=== PATIENT | male | born 1960 | race African-American/Black ===

== ENCOUNTER 2017-06-20 14:14 | Inpatient (IN) | payer OTHER ==
[2017-06-20 15:12] LABS: #Lymphocytes 0.5 thou/uL (1.20-3.40); #Monocytes 0.8 thou/uL (0.11-0.59); %Basophils 0.2 % (0.0-1.0); %Eosinophils 0.3 % (0.0-10.0); %Lymphocytes 5.6 % (21.0-51.0); %Monocytes 8.2 % (0.0-10.0); Hematocrit 26.8 % (42.0-52.0); Mean Platelet Volume 8.4 fL (7.4-10.4); Red Blood Cell (RBC) Count 2.89 mill/uL (4.70-6.10); White Blood Cell (WBC) Count 9.4 thou/uL (4.8-10.8)
[2017-06-20 15:25] LABS: Lactic Acid - Sepsis 1.7 mmol/L (0.5-2.2)
[2017-06-20 15:32] LABS: ALT (SGPT) 18 U/L (8-55); AST (SGOT) 13 U/L (5-34); Alkaline Phosphatase 62 U/L (40-150); Anion Gap 30 mmol/L (10-20); Bilirubin, Total 0.9 mg/dL (0.2-1.2); Calc. Creatinine Clearance 0 mL/min (70-130); Calcium 9.6 mg/dL (7.8-10.44); Carbon Dioxide 18 mmol/L (22-29); Chloride 102 mmol/L (98-107); Estimated GFR-MDRD 3; Globulin 3.1 g/dL (2.4-3.5); Lipase 30 U/L (8-78); Protein, Total 7.2 g/dL (6.0-8.3)
[2017-06-20 15:43] LABS: BUN (Urea Nitrogen) 115 mg/dL (8.4-25.7)
--- NOTE | 2017-06-20 15:58 | HP ---
PRIMARY CARE PHYSICIAN: Beatriz Nails M.D. REASON FOR ADMISSION: Acute pulmonary edema, hypertensive urgency, hyperkalemia. HISTORY OF PRESENT ILLNESS: A 56-year-old -Filipino male who initially went to [facility] for evaluation of abdominal pain. The patient was having diffuse abdominal pain, constant burning discomfort without any association of nausea or vomiting. He denies any melena or hematochezia. He denies any abdominal distention. He denies any relation of abdominal pain with food. He denies any fever or chills. He denies any constipation or diarrhea. The patient reports that he missed 3 dialysis appointments. Today, he went to [facility] and he had CT of the abdomen and pelvis which showed pulmonary edema without any acute abdominal process. He was having high blood pressure 228/120 and pulse 117 at [facility]. Patient had routine blood test, which showed hyperkalemia. Subsequently, patient was transferred to our emergency room because patient was needing emergent hemodialysis. At [facility], patient is given Kayexalate and Zofran. After arrival to our emergency room, Dr. Freeman was notified who is going to do emergent dialysis for this particular patient. Patient denies any chest pain, palpitations, shortness of breath. He denies any nausea, vomiting, diarrhea. He denies any fever or chills. ALLERGIES: No known drug allergies. CURRENT HOME MEDICATIONS: PhosLo 667 mg 3 times daily, Coreg 25 mg twice daily , Lipitor 40 mg p.o. at bedtime, Lasix 40 mg p.o. daily, Atarax 25 mg q.8 hourly p.r.n., hydralazine 50 mg 3 times daily. REVIEW OF SYSTEMS: The following complete review of systems was negative, unless otherwise mentioned in the HPI or below: Constitutional: Weight loss or gain, ability to conduct usual activities. Skin: Rash, itching. Eyes: Double vision, pain. ENT/Mouth: Nose bleeding, neck stiffness, pain, tenderness. Cardiovascular: Palpitations, dyspnea on exertion, orthopnea. Respiratory: Shortness of breath, wheezing, cough, hemoptysis, fever or night sweats. Gastrointestinal: Poor appetite, abdominal pain, heartburn, nausea, vomiting, constipation, or diarrhea. Genitourinary: Urgency, frequency, dysuria, nocturia. Musculoskeletal: Pain, swelling. Neurologic/Psychiatric: Anxiety, depression. Allergy/Immunologic: Skin rash, bleeding tendency Please see my HPI for pertinent positives and negatives. All other review of systems reviewed and negative except as mentioned in the HPI. PAST MEDICAL HISTORY: End-stage renal disease on hemodialysis, chronic diastolic heart failure, hypertension, dyslipidemia, anemia of renal disease, secondary hyperparathyroidism of renal origin. PAST SURGICAL HISTORY: Right forearm AV dialysis shunt. PAST PSYCHIATRIC HISTORY: Reviewed and negative. SOCIAL HISTORY: The patient lives at home with family. No history of tobacco, alcohol or illicit drug abuse. FAMILY HISTORY: No strong family history of premature coronary artery disease, stroke or cancer. PHYSICAL EXAMINATION: VITAL SIGNS: On arrival to our emergency room, blood pressure 199/115, pulse 103, respiratory rate 33, temperature 98.4, saturation 98% on room air. Initially, blood pressure at [facility] was 228/120. GENERAL: Patient is currently alert, awake, chronically ill appearing, no obvious acute distress. HEAD: Normocephalic, atraumatic. EYES: Pupils round and reactive to light. Extraocular muscles intact. ENT: Oropharynx within normal limits. Moist mucous membranes. No oral lesions. No pharyngeal erythema, no exudate. NECK: Supple. Range of motion is normal. No meningeal signs of irritation. LUNGS: Clear to auscultation without any obvious rhonchi or rales noted. CARDIAC: S1 and S2 regular, tachycardia, no murmur, no gallop, no rub. ABDOMEN: Soft, bowel sounds present, nontender, nondistended. No organomegaly , no mass, no suprapubic tenderness. EXTREMITIES: Upper extremity AV fistula in right forearm, good thrill. Lower extremity, bilateral pitting edema noted. Good distal pulsation. SKIN: No skin rash. HEMATOLOGICAL SYSTEM: No lymphadenopathy. PSYCHIATRIC: Normal affect. IMAGING AND SIGNIFICANT LABORATORY DATA: 1. EKG based on my review, sinus tachycardia, nonspecific ST-T changes, LVH, left atrial enlargement. 2. Chest x-ray based on my review, cardiomegaly and pulmonary edema. 3. CT of the abdomen and pelvis, no acute abdominal process, pulmonary edema noted. 4. CBC: WBC 7.9, hemoglobin 7.9, MCV 94, platelet 188. 5. BMP: Sodium 145, potassium 7.3, chloride 102, carbon dioxide 17, anion gap 33, BUN 119, creatinine 23.69, glucose 109, calcium 9.3. Lactic acid 1.6. 6. LFT: AST 16, ALT 22, alkaline phosphatase 61, albumin 4.2, lipase 37, BNP 3661.4. ASSESSMENT AND PLAN/IMPRESSION: 1. Acute pulmonary edema, likely due to end-stage renal disease and noncompliance with dialysis regimen precipitated by hypertensive urgency. The patient will require admission to [facility]. Dr. Freeman is already consulted as patient will need emergent dialysis. We will control blood pressure with nitro patch q.8 hourly and will use hydralazine, labetalol, and clonidine on a p.r.n. basis. If blood pressure does not remain under control, then we will consider adding parenteral medications. 2. Acute hyperkalemia due to decreased renal excretion and missed dialysis. Patient will need emergent dialysis. Patient is already given Kayexalate in another emergency room. We will repeat BMP. 3. End-stage renal disease, on hemodialysis, missed 3 dialysis and patient has pulmonary edema. The patient will require dialysis. While in hospital, Dr. Freeman will be consulted. 4. Anion gap metabolic acidosis due to renal failure. 5. Acute on chronic diastolic heart failure. Patient has elevated BNP and currently patient has pulmonary edema. We will obtain echocardiography during this admission. 6. Anemia of renal disease. We will continue Nephro-Rosa one tablet p.o. daily , ferrous sulfate 325 mg p.o. daily and Procrit with dialysis. 7. Deep venous thrombosis prophylaxis, heparin 5000 units subcu twice daily. 8. Gastrointestinal prophylaxis, Pepcid 20 mg p.o. daily. 9. Secondary hyperparathyroidism of renal origin. continue Phoslo as per home dose 10. Hypertensive Urgency: add nitro patch along with home medication and PRN meds 11.Abdominal pain: add Morphin for pain, does not have any acute process on CT and on exam. CODE STATUS: The patient is FULL CODE. Patient does not have any surrogate decision maker. Disposition plan based on clinical course. We are expecting patient's stay in the hospital more than 2 midnights. Plan of care discussed with the patient in detail. MTDD
[2017-06-20] MEDS ORDERED: Eucerin (Mineral Oil/Petrolatum,White) 30 gm Jar TOP PRN (17:07)
[2017-06-20] MEDS ORDERED: Milk Of Magnesia 30 ML UDCUP PO PRN (17:07)
[2017-06-20] MEDS ORDERED: Ondansetron HCl/PF 4 MG/2 ML Vial IVP PRN (17:07)
[2017-06-20] MEDS ORDERED: Diabetic Tussin 200 MG/10 ML UDCUP PO PRN (17:07)
[2017-06-20] MEDS ORDERED: Chloraseptic Spray 180 ml Bottle PO PRN (17:07)
[2017-06-20] MEDS ORDERED: Acetaminophen 325 MG TAB PO PRN (17:07)
[2017-06-20] MEDS ORDERED: Loperamide HCl 2 MG CAP PO PRN (17:07)
[2017-06-20] MEDS ORDERED: Senokot 8.6 MG TAB PO PRN (17:07)
[2017-06-20] MEDS ORDERED: hydrALAZINE 20 MG/ML VIAL SLOW IVP PRN (17:07)
[2017-06-20] MEDS ORDERED: Sodium Chloride 0.65% Nasal 44 ML BOT EA NARE PRN (17:07)
[2017-06-20] MEDS ORDERED: Loratadine 10 MG TAB PO PRN (17:07)
[2017-06-20] MEDS ORDERED: Labetalol HCl 100 MG/20 ML VIAL SLOW IVP PRN (17:07)
[2017-06-20] MEDS ORDERED: Mag-Al 1200 mg/1200 mg/30 ML UDCUP PO PRN (17:07)
[2017-06-20] MEDS ORDERED: Ondansetron ODT 4 MG TAB PO PRN (17:07)
[2017-06-20] MEDS ORDERED: Zolpidem Tartrate 5 MG TAB PO PRN (17:07)
[2017-06-20] MEDS ORDERED: Nitroglycerin 0.4 MG TAB (25 Tab Bottle) SL PRN (17:07)
[2017-06-20] MEDS ORDERED: Morphine 10 MG/ML CARPUJECT SLOW IVP PRN (17:30)
[2017-06-20] MEDS: Calcium Acetate 667 MG CAP PO SCH (17:50)
[2017-06-20] MEDS: Carvedilol 25 MG TAB PO SCH (18:16)
[2017-06-20] MEDS: cloNIDine 0.1 MG TAB PO PRN (19:08)
[2017-06-20] MEDS: Heparin 5,000 UNITS/ML VIAL SC SCH (22:27)
[2017-06-20] MEDS: Atorvastatin Calcium 40 MG TAB PO SCH (22:28)
[2017-06-20] MEDS: Nitroglycerin 2% Ointment 1 INCH/1 GM Packet TOP SCH (22:28)
[2017-06-20 22:52] VITALS: BMI 23.0
--- NOTE | 2017-06-21 00:21 | CON ---
DATE OF CONSULTATION: 06/20/2017 REASON FOR CONSULTATION: Hyperkalemia. HISTORY OF PRESENT ILLNESS: This is a very pleasant 56-year-old gentleman, who presented to the hosp [facility] with acute pulmonary edema, hypertension, urgency and hyperkalemia. The patient has a history o f noncompliance, missing dialysis. He says he does not feel like going. The patient can give no fur ther history. PAST MEDICAL HISTORY: Significant for end-stage renal disease, chronic diastolic heart failure, hype rtension, hyperlipidemia, anemia of chronic disease, history of AV fistula, history of tunneled dialy sis catheter. SOCIAL HISTORY: No alcohol or drug use. FAMILY HISTORY: Negative for ESRD. REVIEW OF SYSTEMS: Patient declined to answer. PHYSICAL EXAMINATION: GENERAL: Patient is awake, alert. VITAL SIGNS: Afebrile, pulse 100, breathing 16, blood pressure 119/150. GENERAL APPEARANCE AND MENTAL STATUS: Fair. HEAD/NECK: Normocephalic. Atraumatic. EYES: EOMI. No deformity. EARS: Clear. No ulcers. NOSE: Intact. No lesions. MOUTH: Clear. No discharge. THROAT: Clear. No exudate. LUNGS: Clear. Crackles. CARDIAC: S1, S2. No rub. ABDOMEN: Benign. BS+. GENITALIA/RECTUM: Hunt absent. BACK/EXTREMITIES: Lower extremities has edema. NEUROLOGICAL: Alert and motor intact. SKIN: Rash- Bruise- LYMPHATICS: Edema- Ulcer LABORATORY: Potassium 7.3. ASSESSMENT AND RECOMMENDATIONS: 1. Stage 3 chronic kidney disease. Plan urgent hemodialysis. The nurse will call. 2. Hyperkalemia, plan dialysis acidosis. Plan dialysis. 3. Anemia, stable. 4. Medications based on GFR appropriate. Overall, prognosis is extremely poor.
[2017-06-21] MEDS: hydrOXYzine 10 MG TAB PO PRN (00:24)
[2017-06-21 04:49] LABS: #Eosinphils 0.2 thou/uL (0.0-0.7); #Lymphocytes 0.8 thou/uL (1.20-3.40); #Monocytes 0.5 thou/uL (0.11-0.59); %Basophils 0.5 % (0.0-1.0); %Eosinophils 5.2 % (0.0-10.0); %Lymphocytes 17.3 % (21.0-51.0); %Monocytes 10.1 % (0.0-10.0); Hematocrit 22.7 % (42.0-52.0); Mean Platelet Volume 7.4 fL (7.4-10.4); Red Blood Cell (RBC) Count 2.43 mill/uL (4.70-6.10); White Blood Cell (WBC) Count 4.6 thou/uL (4.8-10.8)
[2017-06-21 05:18] LABS: ALT (SGPT) 14 U/L (8-55); AST (SGOT) 8 U/L (5-34); Alkaline Phosphatase 53 U/L (40-150); Anion Gap 16 mmol/L (10-20); BUN (Urea Nitrogen) 47 mg/dL (8.4-25.7); Calc. Creatinine Clearance 6 mL/min (70-130); Calcium 9.1 mg/dL (7.8-10.44); Carbon Dioxide 33 mmol/L (22-29); Chloride 99 mmol/L (98-107); Estimated GFR-MDRD 5; Globulin 2.8 g/dL (2.4-3.5); Phosphorus 8.1 mg/dL (2.3-4.7); Protein, Total 6.3 g/dL (6.0-8.3)
[2017-06-21] MEDS: Nitroglycerin 2% Ointment 1 INCH/1 GM Packet TOP SCH ×3 (06:15→20:47)
[2017-06-21] MEDS: Aspirin 325 MG TAB PO SCH (07:54)
[2017-06-21] MEDS: Folic Acid/Vit B Comp W-C PO SCH (07:54)
[2017-06-21] MEDS: Carvedilol 25 MG TAB PO SCH ×2 (07:54→17:28)
[2017-06-21] MEDS: Calcium Acetate 667 MG CAP PO SCH ×3 (07:54→17:28)
[2017-06-21] MEDS: Famotidine 20 MG TAB PO SCH (07:55)
[2017-06-21] MEDS: Heparin 5,000 UNITS/ML VIAL SC SCH ×2 (07:55→20:46)
[2017-06-21] MEDS ORDERED: FLU VACC QS2017-18 36 mo. & older 0.5 ML SYRINGE IM ONE (09:00)
--- NOTE | 2017-06-21 12:12 | PDOC.PN ---
- Subjective Encounter Start Date: 06/21/17 Encounter Start Time: 07:50 -: old records requested/rev Patient seen and examined. No new complaints. No overnight events, denies abdominal pain - Objective Resuscitation Status: Resuscitation Status FULL:Full Resuscitation MAR Reviewed: Yes Vital Signs & Weight: Vital Signs (12 hours) Temp Pulse Resp BP Pulse Ox 06/21/17 11:29 98.1 F 75 20 145/86 H 100 06/21/17 08:31 100 06/21/17 08:00 99.0 F 83 20 100 06/21/17 07:26 99.0 F 83 20 129/78 100 06/21/17 04:00 98.4 F 84 20 136/90 100 Weight Weight 129 lb 14.4 oz I&O: 06/20/17 06/21/17 06/22/17 06:59 06:59 06:59 Intake Total 100 Output Total 3200 Balance -3100 Result Diagrams: 06/21/17 04:31 06/21/17 04:31 EKG Reviewed by me: Yes (NSR) Phys Exam - Physical Examination Constitutional: NAD HEENT: PERRLA, moist MMs, sclera anicteric Neck: no JVD, supple Respiratory: no wheezing, no rales, no rhonchi Cardiovascular: RRR, no significant murmur, no rub Gastrointestinal: soft, non-tender, no distention, positive bowel sounds Musculoskeletal: no edema, pulses present Neurological: non-focal, normal sensation, moves all 4 limbs Psychiatric: normal affect, A&O x 3 Skin: no rash, normal turgor Dx/Plan (1) Abdominal pain Code(s): R10.9 - UNSPECIFIED ABDOMINAL PAIN Status: Resolved (2) Acute on chronic diastolic (congestive) heart failure Code(s): I50.33 - ACUTE ON CHRONIC DIASTOLIC (CONGESTIVE) HEART FAILURE Status : Acute (3) Hypertensive urgency Code(s): I16.0 - HYPERTENSIVE URGENCY Status: Acute (4) Metabolic acidosis Code(s): E87.2 - ACIDOSIS Status: Acute (5) Pulmonary edema Code(s): J81.1 - CHRONIC PULMONARY EDEMA Status: Resolved (6) Anemia of renal disease Code(s): D63.1 - ANEMIA IN CHRONIC KIDNEY DISEASE Status: Chronic (7) Dyslipidemia Code(s): E78.5 - HYPERLIPIDEMIA, UNSPECIFIED Status: Chronic (8) ESRD (end stage renal disease) on dialysis Code(s): N18.6 - END STAGE RENAL DISEASE; Z99.2 - DEPENDENCE ON RENAL DIALYSIS Status: Chronic (9) Hypertension Code(s): I10 - ESSENTIAL (PRIMARY) HYPERTENSION Status: Chronic (10) Noncompliance of patient with renal dialysis Code(s): Z91.15 - PATIENT'S NONCOMPLIANCE WITH RENAL DIALYSIS Status: Chronic (11) Secondary hyperparathyroidism of renal origin Code(s): N25.81 - SECONDARY HYPERPARATHYROIDISM OF RENAL ORIGIN Status: Chronic (12) Hyperkalemia Code(s): E87.5 - HYPERKALEMIA Status: Resolved - Plan cont current plan of care * after dialysis, BP controlled, pulmonary edema resolved and potassium improved * today will transfer to medical * echo today * will adjust BP medication * medication reviewed as below * symptomatic treatment. Review of Systems - Review of Systems Constitutional: negative: Fever, Chills, Sweats, Weakness, Malaise, Other Eyes: negative: Pain, Vision Change, Conjunctivae Inflammation, Eyelid Inflammation, Redness, Other ENT: negative: Ear Pain, Ear Discharge, Nose Pain, Nose Discharge, Nose Congestion, Mouth Pain, Mouth Swelling, Throat Pain, Throat Swelling, Other Respiratory: negative: Cough, Dry, Shortness of Breath, Hemoptysis, SOB with Excertion, Pleuritic Pain, Sputum, Wheezing Cardiovascular: negative: Chest Pain, Palpitations, Orthopnea, Paroxysmal Noc. Dyspnea, Edema, Light Headedness, Other Gastrointestinal: negative: Nausea, Vomiting, Abdominal Pain, Diarrhea, Constipation, Melena, Hematochezia, Other Genitourinary: negative: Dysuria, Frequency, Incontinence, Hematuria, Retention , Other Musculoskeletal: negative: Neck Pain, Shoulder Pain, Arm Pain, Back Pain, Hand Pain, Leg Pain, Foot Pain, Other Skin: negative: Rash, Lesions, Morales, Bruising, Other - Medications/Allergies Allergies/Adverse Reactions: Allergies Allergy/AdvReac Type Severity Reaction Status Date / Time No Known Allergies Allergy Verified 06/20/17 17:09 Medications: Current Medications Acetaminophen (Tylenol) 650 mg PO Q4H PRN PRN Reason: Headache/Fever or Pain Hydrocodone Bitart/Acetaminophen ([place] 5/325) 1 tab PO Q4H PRN PRN Reason: Moderate Pain (4-6) Al Hydroxide/Mg Hydroxide (Maalox) 30 ml PO Q6H PRN PRN Reason: Heartburn or Indigestion Aspirin (Aspirin) 325 mg PO DAILY [facility] Last Admin: 06/21/17 07:54 Dose: 325 mg Atorvastatin Calcium (Lipitor) 40 mg PO [facility] Last Admin: 06/20/17 22:28 Dose: 40 mg Calcium Acetate (Phoslo) 667 mg PO TID-[facility] Last Admin: 06/21/17 11:28 Dose: 667 mg Carvedilol (Coreg) 25 mg PO BID-[facility] Last Admin: 06/21/17 07:54 Dose: 25 mg Clonidine (Catapres) 0.1 mg PO Q4H PRN PRN Reason: SBP Greater Than 170 Last Admin: 06/20/17 19:08 Dose: 0.1 mg Famotidine (Pepcid) 20 mg PO DAILY [facility] Last Admin: 06/21/17 07:55 Dose: 20 mg Guaifenesin (Robitussin Sf) 200 mg PO Q4H PRN PRN Reason: Cough Heparin Sodium (Porcine) (Heparin) 5,000 units SC BID [facility] Last Admin: 06/21/17 07:55 Dose: 5,000 units Hydralazine HCl (Apresoline) 10 mg SLOW IVP Q4H PRN PRN Reason: SBP Greater Than 170 Hydroxyzine HCl (Atarax) 10 mg PO Q6H PRN PRN Reason: Itching Last Admin: 06/21/17 00:24 Dose: 10 mg Labetalol HCl (Normodyne) 20 mg SLOW IVP Q4H PRN PRN Reason: SBP Greater Than 170 Loperamide HCl (Imodium) 2 mg PO PRN PRN PRN Reason: Diarrhea/Loose Stools Loratadine (Claritin) 10 mg PO DAILYPRN PRN PRN Reason: Sinus Symptoms Magnesium Hydroxide (Milk Of Magnesium) 30 ml PO DAILYPRN PRN PRN Reason: Constipation Mineral Oil/White Petrolatum (Eucerin Cream) 0 gm TOP BIDPRN PRN PRN Reason: Dry Skin Morphine Sulfate (Morphine) 2 mg SLOW IVP Q4H PRN PRN Reason: Severe Pain (7-10) Nitroglycerin (Nitrostat) 0.4 mg SL Q5MIN PRN PRN Reason: Chest Pain Nitroglycerin (Nitro-Bid 2% Ointment) 0.5 inch TOP Q8HR [facility] Last Admin: 06/21/17 06:15 Dose: 0.5 inch Ondansetron HCl (Zofran Odt) 4 mg PO Q6H PRN PRN Reason: Nausea/Vomiting Ondansetron HCl (Zofran) 4 mg IVP Q6H PRN PRN Reason: Nausea/Vomiting Phenol (Chloraseptic [place] 180 Ml Bot) 0 ml PO PRN PRN PRN Reason: Sore Throat Senna (Senokot) 2 tab PO HSPRN PRN PRN Reason: Constipation Sodium Chloride ([place] Nasal [place] 0.65%) 0 ml EA NARE QIDPRN PRN PRN Reason: Nasal Congestion Vitamin B Complex/Vit C/Folic Acid (Nephro-Rosa Tablet) 1 tab PO DAILY [facility] Last Admin: 06/21/17 07:54 Dose: 1 tab Zolpidem Tartrate (Ambien) 5 mg PO HSPRN PRN PRN Reason: Insomnia
--- NOTE | 2017-06-21 13:17 | PRG ---
DATE OF SERVICE: 06/21/2017 SUBJECTIVE: This is a 56-year-old gentleman being seen for end-stage renal disease. The patient den ies any nausea, vomiting or chest pain. PHYSICAL EXAMINATION: GENERAL: Patient is awake, alert. VITAL SIGNS: Afebrile, pulse 75, breathing at 16, blood pressure 129/78. GENERAL APPEARANCE AND MENTAL STATUS: Fair. HEAD/NECK: Normocephalic. Atraumatic. EYES: EOMI. No deformity. EARS: Clear. No ulcers. NOSE: Intact. No lesions. MOUTH: Clear. No discharge. THROAT: Clear. No exudate. LUNGS: Clear. No crackles. CARDIAC: S1, S2. No rub. ABDOMEN: Benign. BS+ GENITALIA/RECTUM: Hunt absent. BACK/EXTREMITIES: Edema 0+ Ulcer- NEUROLOGICAL: Alert and motor intact. SKIN: Rash- Bruise- LYMPHATICS: Edema- Ulcer- LABORATORY DATA: Hemoglobin 7.2. ASSESSMENT AND RECOMMENDATIONS: 1. Stage 6 chronic kidney disease, plan dialysis. 2. Anemia. We will check hemoglobin again tomorrow and consider transfusion. 3. Medication based on glomerular filtration rate are appropriate. Noncompliance is a major issue.
[2017-06-21] MEDS: Atorvastatin Calcium 40 MG TAB PO SCH (20:44)
[2017-06-21] MEDS: cloNIDine 0.1 MG TAB PO PRN (20:46)
[2017-06-22 05:26] LABS: #Basophils 0.1 thou/uL (0.0-0.2); #Eosinphils 0.4 thou/uL (0.0-0.7); #Lymphocytes 0.7 thou/uL (1.20-3.40); #Monocytes 0.5 thou/uL (0.11-0.59); #Neutrophils 2.6 thou/uL (1.40-6.50); %Basophils 1.5 % (0.0-1.0); %Eosinophils 8.6 % (0.0-10.0); %Monocytes 12.6 % (0.0-10.0); Mean Platelet Volume 8.1 fL (7.4-10.4); Red Blood Cell (RBC) Count 2.34 mill/uL (4.70-6.10); White Blood Cell (WBC) Count 4.3 thou/uL (4.8-10.8)
[2017-06-22] MEDS: Nitroglycerin 2% Ointment 1 INCH/1 GM Packet TOP SCH (05:38)
[2017-06-22] MEDS: Famotidine 20 MG TAB PO SCH (08:06)
[2017-06-22] MEDS: hydrALAZINE 25 MG TAB PO SCH ×2 (08:06→19:55)
[2017-06-22] MEDS: Carvedilol 25 MG TAB PO SCH ×2 (08:06→18:46)
[2017-06-22] MEDS: Aspirin 325 MG TAB PO SCH (08:06)
[2017-06-22] MEDS: Folic Acid/Vit B Comp W-C PO SCH (08:06)
[2017-06-22] MEDS: Calcium Acetate 667 MG CAP PO SCH ×3 (08:06→18:46)
[2017-06-22] MEDS: Heparin 5,000 UNITS/ML VIAL SC SCH ×2 (08:07→19:55)
[2017-06-22] MEDS: Ferrous Sulfate 325 MG TAB PO SCH (08:07)
[2017-06-22] MEDS ORDERED: Epoetin (ESRD) 20,000 UNITS/ML SC SCH (09:00)
--- NOTE | 2017-06-22 12:04 | PDOC.PN ---
- Subjective Encounter Start Date: 06/22/17 Encounter Start Time: 09:30 Patient seen and examined. No new complaints. No overnight events - Objective Resuscitation Status: Resuscitation Status FULL:Full Resuscitation MAR Reviewed: Yes Vital Signs & Weight: Vital Signs (12 hours) Temp Pulse Resp BP BP Pulse Ox 06/22/17 10:55 98.1 F 69 20 158/85 H 97 06/22/17 10:04 167/88 H 06/22/17 08:06 72 178/108 H 06/22/17 08:00 97.2 F L 72 22 H 181/100 H 96 06/22/17 05:00 97.9 F 72 18 163/94 H 99 06/22/17 01:00 98.2 F 79 20 158/88 H 93 L Weight Weight 129 lb 14.4 oz I&O: 06/21/17 06/22/17 06/23/17 06:59 06:59 06:59 Intake Total 100 730 Output Total 3200 Balance -3100 730 Result Diagrams: 06/22/17 04:44 06/21/17 04:31 Additional Labs: Accuchecks 06/20/17 21:08 POC Glucose 131 H Phys Exam - Physical Examination Constitutional: NAD HEENT: PERRLA, moist MMs, sclera anicteric Neck: no JVD, supple Respiratory: no wheezing, no rales, no rhonchi Cardiovascular: RRR, no significant murmur, no rub Gastrointestinal: soft, non-tender, no distention, positive bowel sounds Musculoskeletal: no edema, pulses present Neurological: non-focal, normal sensation Psychiatric: normal affect, A&O x 3 Skin: no rash, normal turgor Dx/Plan (1) Abdominal pain Code(s): R10.9 - UNSPECIFIED ABDOMINAL PAIN Status: Resolved (2) Acute on chronic diastolic (congestive) heart failure Code(s): I50.33 - ACUTE ON CHRONIC DIASTOLIC (CONGESTIVE) HEART FAILURE Status : Acute (3) Hypertensive urgency Code(s): I16.0 - HYPERTENSIVE URGENCY Status: Acute (4) Metabolic acidosis Code(s): E87.2 - ACIDOSIS Status: Acute (5) Pulmonary edema Code(s): J81.1 - CHRONIC PULMONARY EDEMA Status: Resolved (6) Anemia of renal disease Code(s): D63.1 - ANEMIA IN CHRONIC KIDNEY DISEASE Status: Chronic (7) Dyslipidemia Code(s): E78.5 - HYPERLIPIDEMIA, UNSPECIFIED Status: Chronic (8) ESRD (end stage renal disease) on dialysis Code(s): N18.6 - END STAGE RENAL DISEASE; Z99.2 - DEPENDENCE ON RENAL DIALYSIS Status: Chronic (9) Hypertension Code(s): I10 - ESSENTIAL (PRIMARY) HYPERTENSION Status: Chronic (10) Noncompliance of patient with renal dialysis Code(s): Z91.15 - PATIENT'S NONCOMPLIANCE WITH RENAL DIALYSIS Status: Chronic (11) Secondary hyperparathyroidism of renal origin Code(s): N25.81 - SECONDARY HYPERPARATHYROIDISM OF RENAL ORIGIN Status: Chronic (12) Hyperkalemia Code(s): E87.5 - HYPERKALEMIA Status: Resolved - Plan cont current plan of care * add ferrous sulfate * add hydralazin and imdur * pt is not on ACEI and ARB due to ESRD and risk for hyperkalemia * medication reviewed as below * symptomatic treatment * today will plan for transfusion of 1 unit with HD * tomorrow will repeat labs and possible discharge . Review of Systems - Review of Systems ENT: negative: Ear Pain, Ear Discharge, Nose Pain, Nose Discharge, Nose Congestion, Mouth Pain, Mouth Swelling, Throat Pain, Throat Swelling, Other Respiratory: negative: Cough, Dry, Shortness of Breath, Hemoptysis, SOB with Excertion, Pleuritic Pain, Sputum, Wheezing Cardiovascular: negative: Chest Pain, Palpitations, Orthopnea, Paroxysmal Noc. Dyspnea, Edema, Light Headedness, Other Gastrointestinal: negative: Nausea, Vomiting, Abdominal Pain, Diarrhea, Constipation, Melena, Hematochezia, Other Genitourinary: negative: Dysuria, Frequency, Incontinence, Hematuria, Retention , Other Musculoskeletal: negative: Neck Pain, Shoulder Pain, Arm Pain, Back Pain, Hand Pain, Leg Pain, Foot Pain, Other - Medications/Allergies Allergies/Adverse Reactions: Allergies Allergy/AdvReac Type Severity Reaction Status Date / Time No Known Allergies Allergy Verified 06/20/17 17:09 Medications: Current Medications Acetaminophen (Tylenol) 650 mg PO Q4H PRN PRN Reason: Headache/Fever or Pain Hydrocodone Bitart/Acetaminophen ([place] 5/325) 1 tab PO Q4H PRN PRN Reason: Moderate Pain (4-6) Al Hydroxide/Mg Hydroxide (Maalox) 30 ml PO Q6H PRN PRN Reason: Heartburn or Indigestion Aspirin (Aspirin) 325 mg PO DAILY [facility] Last Admin: 06/22/17 08:06 Dose: 325 mg Atorvastatin Calcium (Lipitor) 40 mg PO HS [facility] Last Admin: 06/21/17 20:44 Dose: 40 mg Calcium Acetate (Phoslo) 667 mg PO TID-[facility] Last Admin: 06/22/17 08:06 Dose: 667 mg Carvedilol (Coreg) 25 mg PO BID-[facility] Last Admin: 06/22/17 08:06 Dose: 25 mg Clonidine (Catapres) 0.1 mg PO Q4H PRN PRN Reason: SBP Greater Than 170 Last Admin: 06/21/17 20:46 Dose: 0.1 mg Epoetin Mamadou (Procrit) 7,500 units SC Q7D [facility] Famotidine (Pepcid) 20 mg PO DAILY [facility] Last Admin: 06/22/17 08:06 Dose: 20 mg Ferrous Sulfate (Feosol) 325 mg PO QAM-[facility] Last Admin: 06/22/17 08:07 Dose: 325 mg Guaifenesin (Robitussin Sf) 200 mg PO Q4H PRN PRN Reason: Cough Heparin Sodium (Porcine) (Heparin) 5,000 units SC BID [facility] Last Admin: 06/22/17 08:07 Dose: Not Given Hydralazine HCl (Apresoline) 10 mg SLOW IVP Q4H PRN PRN Reason: SBP Greater Than 170 Hydralazine HCl (Apresoline) 25 mg PO BID [facility] Last Admin: 06/22/17 08:06 Dose: 25 mg Hydroxyzine HCl (Atarax) 10 mg PO Q6H PRN PRN Reason: Itching Last Admin: 06/21/17 00:24 Dose: 10 mg Isosorbide Mononitrate (Imdur Er) 30 mg PO DAILY [facility] Last Admin: 06/22/17 08:07 Dose: 30 mg Labetalol HCl (Normodyne) 20 mg SLOW IVP Q4H PRN PRN Reason: SBP Greater Than 170 Loperamide HCl (Imodium) 2 mg PO PRN PRN PRN Reason: Diarrhea/Loose Stools Loratadine (Claritin) 10 mg PO DAILYPRN PRN PRN Reason: Sinus Symptoms Magnesium Hydroxide (Milk Of Magnesium) 30 ml PO DAILYPRN PRN PRN Reason: Constipation Mineral Oil/White Petrolatum (Eucerin Cream) 0 gm TOP BIDPRN PRN PRN Reason: Dry Skin Morphine Sulfate (Morphine) 2 mg SLOW IVP Q4H PRN PRN Reason: Severe Pain (7-10) Nitroglycerin (Nitrostat) 0.4 mg SL Q5MIN PRN PRN Reason: Chest Pain Ondansetron HCl (Zofran Odt) 4 mg PO Q6H PRN PRN Reason: Nausea/Vomiting Ondansetron HCl (Zofran) 4 mg IVP Q6H PRN PRN Reason: Nausea/Vomiting Phenol (Chloraseptic [place] 180 Ml Bot) 0 ml PO PRN PRN PRN Reason: Sore Throat Senna (Senokot) 2 tab PO HSPRN PRN PRN Reason: Constipation Sodium Chloride ([place] Nasal [place] 0.65%) 0 ml EA NARE QIDPRN PRN PRN Reason: Nasal Congestion Vitamin B Complex/Vit C/Folic Acid (Nephro-Rosa Tablet) 1 tab PO DAILY [facility] Last Admin: 06/22/17 08:06 Dose: 1 tab Zolpidem Tartrate (Ambien) 5 mg PO HSPRN PRN PRN Reason: Insomnia
[2017-06-22] MEDS: HYDROcodone/Acetaminophen 5/325 mg Tablet PO PRN ×2 (16:50→19:55)
[2017-06-22] MEDS: cloNIDine 0.1 MG TAB PO PRN (16:51)
[2017-06-22] MEDS: hydrOXYzine 10 MG TAB PO PRN (18:44)
--- NOTE | 2017-06-22 19:28 | PRG ---
DATE OF SERVICE: 06/22/2017 SUBJECTIVE: The patient was seen and examined at bedside and overnight events noted. The patient de nies any shortness of breath or chest pain or palpitation. No history of nausea or vomiting or diarr hea or fever or chills or cramps. OBJECTIVE: General: This is a well-built male in no apparent distress. Vital signs: Temperature 97.6, pulse 70, respiratory 18, and blood pressure 180/91. HEENT: Atraumatic, normocephalic, Oral mucosa is moist. Neck: Supple. Cardiovascular: S1, S2 heard. Rate and rhythm regular. Respiratory: Clear to auscultation. Gastrointestinal: Abdomen is soft. Musculoskeletal: No tenderness, No edema. Dermatologic: No skin rash. Neurologic: Alert and awake and oriented X3, No focal neurologic deficits. Moving all the extremiti es. Psychiatric: Mood and affect normal. LABORATORY DATA: Potassium is 4.6, BUN is 47, and 12.06. ASSESSMENT AND PLAN: 1. End-stage renal disease. Continue on dialysis Thursday, , and Thursday. 2. Edema, controlled his hypertension. Continue home medications. 3. Anemia, continue outpatient medications. 4. Overall prognosis is poor. The patient is very noncompliant with dialysis. The patient will con tinue to follow.
[2017-06-22] MEDS: Atorvastatin Calcium 40 MG TAB PO SCH (19:55)
[2017-06-22] MEDS ORDERED: Morphine 4 MG/ML VIAL SLOW IVP PRN (22:50)
[2017-06-23 05:37] LABS: #Eosinphils 0.4 thou/uL (0.0-0.7); #Lymphocytes 0.8 thou/uL (1.20-3.40); #Monocytes 0.7 thou/uL (0.11-0.59); #Neutrophils 2.7 thou/uL (1.40-6.50); %Basophils 0.4 % (0.0-1.0); %Eosinophils 8.4 % (0.0-10.0); %Monocytes 14.4 % (0.0-10.0); Hematocrit 29.6 % (42.0-52.0); Mean Platelet Volume 7.4 fL (7.4-10.4); Red Blood Cell (RBC) Count 3.17 mill/uL (4.70-6.10); White Blood Cell (WBC) Count 4.5 thou/uL (4.8-10.8)
[2017-06-23] MEDS: cloNIDine 0.1 MG TAB PO PRN (05:53)
[2017-06-23 05:57] LABS: Anion Gap 14 mmol/L (10-20); BUN (Urea Nitrogen) 28 mg/dL (8.4-25.7); BUN/Creatinine Ratio 3.01; Calc. Creatinine Clearance 8 mL/min (70-130); Calcium 9.6 mg/dL (7.8-10.44); Carbon Dioxide 33 mmol/L (22-29); Chloride 97 mmol/L (98-107); Estimated GFR-MDRD 7; Phosphorus 6.1 mg/dL (2.3-4.7)
[2017-06-23] MEDS: HYDROcodone/Acetaminophen 5/325 mg Tablet PO PRN (10:23)
[2017-06-23] MEDS: Carvedilol 25 MG TAB PO SCH (10:24)
[2017-06-23] MEDS: hydrALAZINE 25 MG TAB PO SCH (10:24)
--- NOTE | 2017-06-23 11:01 | PDOC.PN ---
- Subjective Encounter Start Date: 06/23/17 Encounter Start Time: 09:35 Patient seen and examined. No new complaints. No overnight events - Objective Resuscitation Status: Resuscitation Status FULL:Full Resuscitation MAR Reviewed: Yes Vital Signs & Weight: Vital Signs (12 hours) Temp Pulse Resp BP BP Pulse Ox 06/23/17 10:24 73 158/96 H 06/23/17 05:53 182/112 H 06/23/17 04:00 97.5 F L 66 20 98 06/23/17 00:00 98.3 F 72 18 166/98 H 92 L Weight Admit Weight 129 lb 14.4 oz Weight 129 lb 14.4 oz Most Recent Monitor Data Heart Rate from ECG 70 NIBP 189/107 Respiration from ECG 18 I&O: 06/22/17 06/23/17 06/24/17 06:59 06:59 06:59 Intake Total 730 1200 Balance 730 1200 Result Diagrams: 06/23/17 05:02 06/23/17 05:02 Phys Exam - Physical Examination Constitutional: NAD HEENT: PERRLA, moist MMs, sclera anicteric Neck: no JVD, supple Respiratory: no wheezing, no rales, no rhonchi Cardiovascular: RRR, no significant murmur, no rub Gastrointestinal: soft, non-tender, no distention, positive bowel sounds Musculoskeletal: no edema, pulses present Neurological: non-focal, normal sensation Psychiatric: normal affect, A&O x 3 Skin: no rash, normal turgor Dx/Plan (1) Abdominal pain Code(s): R10.9 - UNSPECIFIED ABDOMINAL PAIN Status: Resolved (2) Acute on chronic diastolic (congestive) heart failure Code(s): I50.33 - ACUTE ON CHRONIC DIASTOLIC (CONGESTIVE) HEART FAILURE Status : Acute (3) Hypertensive urgency Code(s): I16.0 - HYPERTENSIVE URGENCY Status: Acute (4) Metabolic acidosis Code(s): E87.2 - ACIDOSIS Status: Acute (5) Pulmonary edema Code(s): J81.1 - CHRONIC PULMONARY EDEMA Status: Resolved (6) Anemia of renal disease Code(s): D63.1 - ANEMIA IN CHRONIC KIDNEY DISEASE Status: Chronic (7) Dyslipidemia Code(s): E78.5 - HYPERLIPIDEMIA, UNSPECIFIED Status: Chronic (8) ESRD (end stage renal disease) on dialysis Code(s): N18.6 - END STAGE RENAL DISEASE; Z99.2 - DEPENDENCE ON RENAL DIALYSIS Status: Chronic (9) Hypertension Code(s): I10 - ESSENTIAL (PRIMARY) HYPERTENSION Status: Chronic (10) Noncompliance of patient with renal dialysis Code(s): Z91.15 - PATIENT'S NONCOMPLIANCE WITH RENAL DIALYSIS Status: Chronic (11) Secondary hyperparathyroidism of renal origin Code(s): N25.81 - SECONDARY HYPERPARATHYROIDISM OF RENAL ORIGIN Status: Chronic (12) Hyperkalemia Code(s): E87.5 - HYPERKALEMIA Status: Resolved - Plan cont current plan of care * continue selected home meds * medication reviewed as below * symptomatic treatment * HD today * will discharge later today. Review of Systems - Review of Systems ENT: negative: Ear Pain, Ear Discharge, Nose Pain, Nose Discharge, Nose Congestion, Mouth Pain, Mouth Swelling, Throat Pain, Throat Swelling, Other Respiratory: negative: Cough, Dry, Shortness of Breath, Hemoptysis, SOB with Excertion, Pleuritic Pain, Sputum, Wheezing Cardiovascular: negative: Chest Pain, Palpitations, Orthopnea, Paroxysmal Noc. Dyspnea, Edema, Light Headedness, Other Gastrointestinal: negative: Nausea, Vomiting, Abdominal Pain, Diarrhea, Constipation, Melena, Hematochezia, Other Genitourinary: negative: Dysuria, Frequency, Incontinence, Hematuria, Retention , Other Musculoskeletal: negative: Neck Pain, Shoulder Pain, Arm Pain, Back Pain, Hand Pain, Leg Pain, Foot Pain, Other - Medications/Allergies Allergies/Adverse Reactions: Allergies Allergy/AdvReac Type Severity Reaction Status Date / Time No Known Allergies Allergy Verified 06/20/17 17:09 Medications: Current Medications Acetaminophen (Tylenol) 650 mg PO Q4H PRN PRN Reason: Headache/Fever or Pain Hydrocodone Bitart/Acetaminophen ([place] 5/325) 1 tab PO Q4H PRN PRN Reason: Moderate Pain (4-6) Last Admin: 06/23/17 10:23 Dose: 1 tab Al Hydroxide/Mg Hydroxide (Maalox) 30 ml PO Q6H PRN PRN Reason: Heartburn or Indigestion Aspirin (Aspirin) 325 mg PO DAILY [facility] Last Admin: 06/22/17 08:06 Dose: 325 mg Atorvastatin Calcium (Lipitor) 40 mg PO HS [facility] Last Admin: 06/22/17 19:55 Dose: 40 mg Calcium Acetate (Phoslo) 667 mg PO TID[facility] Last Admin: 06/22/17 18:46 Dose: 667 mg [facility] Last Admin: 06/23/17 10:24 Dose: 25 mg Clonidine (Catapres) 0.1 mg PO Q4H PRN PRN Reason: SBP Greater Than 170 Last Admin: 06/23/17 05:53 Dose: 0.1 mg Epoetin Mamadou (Procrit) 7,500 units SC Q7D [facility] Last Admin: 06/22/17 13:20 Dose: 7,500 units Famotidine (Pepcid) 20 mg PO DAILY [facility] Last Admin: 06/22/17 08:06 Dose: 20 mg Ferrous Sulfate (Feosol) 325 mg PO QAM[facility] Last Admin: 06/22/17 08:07 Dose: 325 mg Guaifenesin (Robitussin Sf) 200 mg PO Q4H PRN PRN Reason: Cough Heparin Sodium (Porcine) (Heparin) 5,000 units SC BID [facility] Last Admin: 06/22/17 19:55 Dose: Not Given Hydralazine HCl (Apresoline) 10 mg SLOW IVP Q4H PRN PRN Reason: SBP Greater Than 170 Hydralazine HCl (Apresoline) 25 mg PO BID [facility] Last Admin: 06/23/17 10:24 Dose: 25 mg Hydroxyzine HCl (Atarax) 10 mg PO Q6H PRN PRN Reason: Itching Last Admin: 06/22/17 18:44 Dose: 10 mg Isosorbide Mononitrate (Imdur Er) 30 mg PO DAILY [facility] Last Admin: 06/22/17 08:07 Dose: 30 mg Labetalol HCl (Normodyne) 20 mg SLOW IVP Q4H PRN PRN Reason: SBP Greater Than 170 Loperamide HCl (Imodium) 2 mg PO PRN PRN PRN Reason: Diarrhea/Loose Stools Loratadine (Claritin) 10 mg PO DAILYPRN PRN PRN Reason: Sinus Symptoms Magnesium Hydroxide (Milk Of Magnesium) 30 ml PO DAILYPRN PRN PRN Reason: Constipation Mineral Oil/White Petrolatum (Eucerin Cream) 0 gm TOP BIDPRN PRN PRN Reason: Dry Skin Morphine Sulfate (Morphine) 2 mg SLOW IVP Q4H PRN PRN Reason: Severe Pain (7-10) Last Admin: 06/22/17 22:52 Dose: 2 mg Nitroglycerin (Nitrostat) 0.4 mg SL Q5MIN PRN PRN Reason: Chest Pain Ondansetron HCl (Zofran Odt) 4 mg PO Q6H PRN PRN Reason: Nausea/Vomiting Ondansetron HCl (Zofran) 4 mg IVP Q6H PRN PRN Reason: Nausea/Vomiting Phenol (Chloraseptic [place] 180 Ml Bot) 0 ml PO PRN PRN PRN Reason: Sore Throat Senna (Senokot) 2 tab PO HSPRN PRN PRN Reason: Constipation Sodium Chloride ([place] Nasal [place] 0.65%) 0 ml EA NARE QIDPRN PRN PRN Reason: Nasal Congestion Vitamin B Complex/Vit C/Folic Acid (Nephro-Rosa Tablet) 1 tab PO DAILY [facility] Last Admin: 06/22/17 08:06 Dose: 1 tab Zolpidem Tartrate (Ambien) 5 mg PO HSPRN PRN PRN Reason: Insomnia
[2017-06-23 11:47] VITALS: BP 153/92; TEMP 97.3
[2017-06-23] MEDS: Famotidine 20 MG TAB PO SCH (12:02)
[2017-06-23] MEDS: Aspirin 325 MG TAB PO SCH (12:02)
[2017-06-23] MEDS: Folic Acid/Vit B Comp W-C PO SCH (12:03)
[2017-06-23] MEDS: Heparin 5,000 UNITS/ML VIAL SC SCH (12:03)
[2017-06-23] MEDS: Calcium Acetate 667 MG CAP PO SCH ×2 (12:03→12:10)
[2017-06-23] MEDS: hydrOXYzine 10 MG TAB PO PRN (12:03)
[2017-06-23] MEDS: Ferrous Sulfate 325 MG TAB PO SCH (12:12)
--- NOTE | 2017-06-23 13:20 | DIS ---
DATE OF ADMISSION: 06/20/2017 DATE OF DISCHARGE: 06/23/2017 PRIMARY CARE PHYSICIAN: Beatriz Nails M.D. DISCHARGE DISPOSITION: Home. PRIMARY DISCHARGE DIAGNOSES: Acute on chronic systolic and diastolic congestive heart failure exacer bation, hypertensive urgency, hyperkalemia, metabolic acidosis, abdominal pain, and acute pulmonary e mayra. SECONDARY DISCHARGE DIAGNOSES: End-stage renal disease on hemodialysis, chronic systolic and diastol ic heart failure, uncontrolled hypertension, anemia of renal disease, dyslipidemia, end-stage renal d isease on hemodialysis, noncompliance with medication and dialysis, secondary hyperparathyroidism of renal origin. PRIMARY PROCEDURE/OPERATION: Maintenance hemodialysis. RADIOLOGICAL INVESTIGATION: Echocardiography showed EF 40%-45%. SIGNIFICANT LABORATORY DATA: WBC 4.5, hemoglobin 9.3, platelets 209, sodium 140, potassium 4.4, BUN 28, creatinine 9.31, calcium 9.6, phosphorus 6.1, albumin 3.7. LFT normal. PTH 474.3. Hepatitis B surface antigen negative. DISCHARGE MEDICATIONS: Proventil HFA 2 puffs q.6 hourly p.r.n., aspirin 81 mg p.o. daily, Lipitor 40 mg p.o. at bedtime, PhosLo 2001 mg p.o. t.i.d. with meal, Coreg 25 mg p.o. b.i.d., clonidine 0.1 mg q.8 hourly, Pepcid 20 mg p.o. daily, ferrous sulfate 325 mg p.o. daily, Nephro-Rosa 1 tablet p.o. marlyn ly, hydralazine 50 mg t.i.d., Atarax 25 mg q.8 hourly p.r.n., Imdur 30 mg p.o. daily. CONTRAINDICATIONS: None. CODE STATUS: FULL CODE. INPATIENT FILLING OPERATOR: Dr. Bernal was consulted while in hospital. TEST RESULTS PENDING ON DISCHARGE: None. ALLERGIES: No known drug allergy. DISCHARGE PLAN: Post hospital, patient will follow up with primary care physician in 1 week. HOSPITAL COURSE: A 56-year-old male with history of end-stage renal disease, who was admitted by me on 06/20/2017. Please see my HPI for further details. The patient was admitted for hypertensive urg ency. He did not have any hemodialysis for a couple of times and he was found with acute pulmonary e mayra and hyperkalemia. He was also having acute metabolic acidosis. This patient also has associated anemia of renal disease and secondary hyperparathyroidism of renal o rigin. Initially at [facility], patient was given Kayexalate and subsequently he was umana sferred to our emergency room, patient required admission in IMCU, we did an emergent hemodialysis. The patient was complaining of abdominal pain, but he had CT of the abdomen and pelvis which was unre markable. After dialysis, patient's abdominal pain was completely improved. The patient remained stable. Next day, at that point we transferred him to medical floor. We did echocardiography which showed EF 40% -45% with diastolic dysfunction and that is why we added Imdur therapy. This patient is not on RICHARD i nhibitor and ARB because of ESRD and hyperkalemia, instead he is on hydralazine mononitrate regimen. The patient had drop in hemoglobin and that is why he was given 1 unit of blood transfusion with dial ysis and today his hemoglobin is 9.3. The patient is seen and examined at bedside today. All review of systems was reviewed with him and negative. Please see my progress note from today for further d etails. Total time spent on discharge day 31 minutes.
--- NOTE | 2017-06-23 23:10 | PRG ---
DATE OF SERVICE: 06/23/2017 SUBJECTIVE: Patient was seen and examined at bedside and overnight events noted. Patient denies any shortness of breath or chest pain or palpitation. No history of nausea or vomiting or diarrhea or f ever or chills or cramps. OBJECTIVE: GENERAL: This is a well-built male in no apparent distress. VITAL SIGNS: Temperature 97.3, pulse 68, respiratory rate of 18, blood pressure 153/92. HEENT: Atraumatic, normocephalic. Oral mucosa is moist. NECK: Supple. CARDIOVASCULAR: S1, S2 heard. Rate and rhythm regular. RESPIRATORY: Clear to auscultation. GASTROINTESTINAL: Abdomen is soft. MUSCULOSKELETAL: No tenderness. No edema. DERMATOLOGIC: No skin rash. NEUROLOGIC: Alert and awake and oriented x3. No focal neurologic deficits. Moving all the extremit ies. PSYCHIATRIC: Mood and affect normal. LABORATORY DATA: Potassium is 4.4, BUN is 28, creatinine is 9.3. ASSESSMENT AND PLAN: 1. End-stage renal disease. We will continue on hemodialysis as tolerated. 2. Hypertension, stable. 3. Edema, controlled. 4. Anemia, continue outpatient medications. The patient is to continue on dialysis. Advised to be compliant with dialysis and continue dialysis as tolerated on Thursday, Thursday, and Thursday. We will follow.
== END 2017-06-23 15:14 | disposition home or self-care (01) | DRG 640 ==
LOC: ERS 14:14 → IMCU/EMU 17:02 → T4-B 06-21 13:04
PROVIDERS: ADMIT Internal Medicine; ATTEND Internal Medicine
PROC: 5A1D70Z Performance of Urinary Filtration, Intermittent, Less than 6 Hours Per Day (ICD-10-PCS; principal; 2017-06-20)
DX: E87.5 Hyperkalemia (principal); J81.0 Acute pulmonary edema; I50.43 Acute on chronic combined systolic (congestive) and diastolic (congestive) heart failure; N18.6 End stage renal disease; I13.2 Hypertensive heart and chronic kidney disease with heart failure and with stage 5 chronic kidney disease, or end stage renal disease; N25.81 Secondary hyperparathyroidism of renal origin; E87.2 Acidosis; I16.0 Hypertensive urgency; D63.1 Anemia in chronic kidney disease; R10.9 Unspecified abdominal pain; Z99.2 Dependence on renal dialysis; Z91.15 Patient's noncompliance with renal dialysis
CPT/HCPCS: 36415; 36416; 36430; 80053; 80069; 83605; 83690; 83970; 84100; 85025; 86850; 86900; 86901; 87340; 90935; 93005; 93306; G0257; J1644; J2270; P9016; Q4081

== ENCOUNTER 2017-08-31 23:50 | Inpatient (IN) | payer OTHER ==
[2017-09-01 00:33] LABS: Anion Gap 32 mmol/L (10-20); BUN (Urea Nitrogen) 111 mg/dL (8.4-25.7); Calc. Creatinine Clearance 0 mL/min (70-130); Carbon Dioxide 22 mmol/L (22-29); Chloride 103 mmol/L (98-107); Estimated GFR-MDRD 3; Glucose 109 mg/dL (70-105); Sodium 150 mmol/L (136-145)
[2017-09-01 00:35] LABS: Potassium 6.8 mmol/L (3.5-5.1)
[2017-09-01 02:11] VITALS: BMI 21.7
[2017-09-01 02:16] LABS: HBSAg Index 0.29 S/CO (0-0.99); Hep B Surf Ag Non-Reactive S/CO (NonReactive)
[2017-09-01 06:10] LABS: ALT (SGPT) 12 U/L (8-55); AST (SGOT) 11 U/L (5-34); Albumin 4.6 g/dL (3.5-5.0); Alkaline Phosphatase 73 U/L (40-150); Anion Gap 23 mmol/L (10-20); BUN (Urea Nitrogen) 29 mg/dL (8.4-25.7); Bilirubin, Total 1.1 mg/dL (0.2-1.2); Calc. Creatinine Clearance 10 mL/min (70-130); Calcium 10.7 mg/dL (7.8-10.44); Carbon Dioxide 27 mmol/L (22-29); Chloride 98 mmol/L (98-107); Estimated GFR-MDRD 10; Globulin 3.8 g/dL (2.4-3.5); Glucose 97 mg/dL (70-105); Potassium 3.6 mmol/L (3.5-5.1); Protein, Total 8.4 g/dL (6.0-8.3); Sodium 144 mmol/L (136-145)
[2017-09-01] MEDS ORDERED: Ondansetron ODT 4 MG TAB PO PRN (06:32)
[2017-09-01] MEDS ORDERED: Senokot 8.6 MG TAB PO PRN (06:32)
[2017-09-01] MEDS ORDERED: Ondansetron HCl/PF 4 MG/2 ML Vial IVP PRN (06:32)
[2017-09-01] MEDS ORDERED: Nitroglycerin 0.4 MG TAB (25 Tab Bottle) PO PRN (06:32)
[2017-09-01] MEDS ORDERED: hydrALAZINE 20 MG/ML VIAL SLOW IVP PRN (06:35)
[2017-09-01] MEDS ORDERED: cloNIDine 0.1 MG TAB PO PRN (06:35)
[2017-09-01] MEDS ORDERED: Nitroglycerin 2% Ointment 1 INCH/1 GM Packet TOP PRN (06:35)
[2017-09-01] MEDS: Carvedilol 25 MG TAB PO SCH ×2 (08:41→16:34)
[2017-09-01] MEDS: Famotidine 20 MG TAB PO SCH ×2 (08:41→21:10)
[2017-09-01] MEDS: Docusate 100 MG CAP PO SCH ×2 (08:41→21:10)
[2017-09-01] MEDS: hydrALAZINE 25 MG TAB PO SCH ×3 (08:41→21:10)
[2017-09-01] MEDS ORDERED: Aspirin 81 mg Enteric Coated Tablet PO SCH ×2 (09:00→11:45)
[2017-09-01] MEDS ORDERED: diphenhydrAMINE 25 MG CAP PO PRN (09:04)
--- NOTE | 2017-09-01 09:45 | HP ---
DATE OF ADMISSION: 09/01/2017 PRIMARY CARE PHYSICIAN: Beatriz Nails M.D. CHIEF COMPLAINT: Shortness of breath. HISTORY OF PRESENT ILLNESS: Patient is a 56-year-old -Stateless male with end-stage renal dise ase on hemodialysis, chronic systolic and diastolic heart failure, ejection fraction 40% range, medic ation noncompliance as well as noncompliance with hemodialysis, who presented to the emergency room a [facility] with shortness of breath of 2 days duration. He also had cough that was productive of thi ck whitish phlegm. The shortness of breath was mainly at rest and was worse on lying down as well as exertion. No chest pain, palpitations, lightheadedness, syncope, diaphoresis reported. He denies a [place] fever or chills. Please note that patient has missed dialysis sessions recently. In the emergency room, his initial vital signs showed temperature 98.5, respirations 20, pulse rate o f 118 with a blood pressure 231/109 with O2 saturation 89% on room air. Chest x-ray showed pulmonary vascular congestion. He received 1 amp of sodium bicarbonate, 10 mg IV hydralazine, 0.1 mg clonidin e, calcium gluconate and was placed on Cardizem drip for hypertensive crisis. His labs showed potass ium of 7.1 with bicarbonate of 18, BUN of 109 and creatinine of 21.63. His BNP was 6016 with troponi n of 0.284. Repeat potassium at this facility was 6.8. PAST MEDICAL HISTORY: 1. End-stage renal disease, noncompliant with hemodialysis. 2. Chronic systolic and diastolic heart failure. 3. Hypertension with hypertensive urgencies in the past. 4. Noncompliance with medications. 5. Secondary hyperthyroidism. 6. Chronic anemia. 7. Dyslipidemia. PAST SURGICAL HISTORY: Dialysis access. ALLERGIES: No known drug allergies. CURRENT HOME MEDICATIONS: Patient is unable to recall any of his home medications. He was discharge d on carvedilol, hydralazine and Imdur, last admission in 05/2017. SOCIAL HISTORY: Patient currently lives at home. He denies any tobacco, alcohol or drug use. FAMILY HISTORY: Negative for premature coronary artery disease, cancer or stroke. REVIEW OF SYSTEMS: The following complete review of systems was negative, unless otherwise mentioned in the HPI or below: Constitutional: Weight loss or gain, ability to conduct usual activities. Skin: Rash, itching. Eyes: Double vision, pain. ENT/Mouth: Nose bleeding, neck stiffness, pain, tenderness. Cardiovascular: Palpitations, dyspnea on exertion, orthopnea. Respiratory: Shortness of breath, wheezing, cough, hemoptysis, fever or night sweats. Gastrointestinal: Poor appetite, abdominal pain, heartburn, nausea, vomiting, constipation, or diarr hea. Genitourinary: Urgency, frequency, dysuria, nocturia. Musculoskeletal: Pain, swelling. Neurologic/Psychiatric Anxiety, depression. Allergy/Immunologic: Skin rash, bleeding tendency. PHYSICAL EXAMINATION: VITAL SIGNS: As discussed above. GENERAL: A 56-year-old male in mild respiratory distress. Feels significantly better after hemodial ysis last night. HEENT: Head atraumatic, normocephalic. Sclerae are anicteric. Moist mucous membrane, no oral lesio n. NECK: Supple, no JVD appreciated. No carotid bruit. LUNGS: Showed bibasilar crackles with scattered rhonchi. No wheezing. HEART: S1, S2 present. Regular rate and rhythm. A 2/6 systolic murmur over the mitral area. ABDOMEN: Soft, nontender, bowel sounds present, no rebound or guarding. EXTREMITIES: Trace edema in bilateral lower extremities. SKIN: Warm and dry. LYMPH NODES: No palpable lymph nodes in the neck. PERIPHERAL VASCULAR: Radial pulses palpable bilaterally. MUSCULOSKELETAL: No joint swelling or tenderness. LABORATORY DATA AND X-RAY FINDINGS: As discussed above. Repeat potassium is 3.6 with BUN 6.8. CBC showed WBC 10.4 with hemoglobin 10.2. Influenza testing was negative. Echocardiogram from last hosp italization showed ejection fraction of 40%-45% with global hypokinesis, grade 1/3 diastolic dysfunct ion. Chest x-ray by my review as discussed above. EKG by my review showed sinus tachycardia with he art rate of 129 with left ventricular hypertrophy and repolarization changes. IMPRESSION: 1. Acute hypoxic respiratory failure secondary to acute on chronic systolic and diastolic heart fail ure/pulmonary edema. 2. Volume overload secondary to missed hemodialysis. 3. End-stage renal disease on hemodialysis with life-threatening hyperkalemia. 4. Metabolic acidosis. 5. Medication noncompliance. 6. Elevated troponins, probably secondary to demand ischemia from congestive heart failure. 7. Dyslipidemia. 8. Anemia secondary to renal insufficiency. 9. Hypertensive crisis. PLAN: The patient will be monitored on the telemetry unit as observation. He will undergo hemodialy sis per Nephrology. He is currently saturating 98% on 4 liter nasal cannula. His last blood pressur e this morning is 206/111. We will continue carvedilol, along with hydralazine and Imdur based on discharge summary. He is unable to recall any of his home medications. RICHARD inhibitor/ARB/Aldacto ne is contraindicated due to hyperkalemia and renal insufficiency. We will continue clonidine, labet alol and hydralazine as needed. Lifestyle modification emphasized. We will repeat base met and trop onin around 11:00 a.m. Renal diet. Vital signs every 4 hourly. We will consult palliative care lina irvin. Plan of care was discussed with the patient in detail. He stated understanding.
[2017-09-01 11:23] LABS: Anion Gap 18 mmol/L (10-20); BUN (Urea Nitrogen) 38 mg/dL (8.4-25.7); Calc. Creatinine Clearance 7 mL/min (70-130); Calcium 10.3 mg/dL (7.8-10.44); Carbon Dioxide 31 mmol/L (22-29); Chloride 98 mmol/L (98-107); Estimated GFR-MDRD 7; Glucose 133 mg/dL (70-105); Potassium 5.1 mmol/L (3.5-5.1); Sodium 142 mmol/L (136-145)
[2017-09-01 11:30] LABS: Troponin I 0.471 ng/mL (< 0.028)
[2017-09-01] MEDS ORDERED: Nitroglycerin 50 MG/250 ML BOT 250 ML IVPB SCH (13:30)
[2017-09-01] MEDS: cloNIDine 0.1 MG TAB PO SCH ×2 (14:46→21:10)
[2017-09-01 15:13] LABS: CKMB 2.8 ng/mL (0-6.6)
--- NOTE | 2017-09-01 15:27 | CON ---
DATE OF CONSULTATION: 09/01/2017 CRITICAL CARE NOTE HISTORY OF PRESENT ILLNESS: The patient is an unfortunate 56-year-old gentleman with a history of a cardiomyopathy who presents with increasing dyspnea and a markedly elevated blood pressure. The patient has a long history of hypertensive cardiac disease. He apparently states that he suffered a myocardial infarction many years ago. He is on dialysis due to hypertension. The patient has had difficulty at times obtaining dialysis. He states whenever his blood pressure is high,that he would become short of breath and develops headaches. At times, he develops substernal chest discomfort. The patient missed a few dialysis treatments recently and again presented with dyspnea and a markedly elevated blood pressure. The patient denies having any present chest discomfort. PAST MEDICAL HISTORY: 1. Hypertension. 2. Cardiomyopathy. 3. History of SD. 4. Chronic renal failure. PAST SURGICAL HISTORY: AV fistula. SOCIAL HISTORY: Nonsmoker. FAMILY HISTORY: No strong family history of heart disease. ALLERGIES: No known drug allergies. MEDICATIONS ON ADMISSION: Aspirin 81 daily, Lipitor 40 at bedtime, Coreg 25 b.i.d., Pepcid 20 daily, iron sulfate 325 daily, Imdur 30 daily, clonidine 0.1 t.i.d., and hydralazine 50 t.i.d. ALLERGIES: No known drug allergies. FAMILY HISTORY: No strong family history of coronary artery disease. REVIEW OF SYSTEMS: Ten-point system otherwise unremarkable. PHYSICAL EXAMINATION: GENERAL: This is an ill-appearing gentleman who is hypertensive with blood pressure of 180/113 and heart rate of 104. NECK: No jugular venous distention. LUNGS: There are few crackles in both bases. HEART: Regular rate and rhythm, normal S1, S2, 1/6 systolic murmur. ABDOMEN: Nondistended. EXTREMITIES: AV fistula. NEUROLOGIC: Nonfocal. LABORATORY RESULTS: His sodium is 142, potassium 5.1, chloride 98, bicarbonate 31, BUN 30, creatinine is 9.8, glucose 133, and troponin 0.47. His white blood cell count was 10.4, hemoglobin 10.2, hematocrit 33.4, platelets 184. Troponin was 0.471, BNP was 6016. IMPRESSION: 1. Hypertensive crisis. 2. Elevated troponin, possible demand ischemia. 3. Congestive heart failure. 4. Cardiomyopathy. 5. End-stage renal disease. This gentleman presents with a hypertensive crisis with a markedly elevated blood pressure, elevated troponin level and congestive heart failure. We would treat the patient with IV nitroglycerin. We will continue the patient on aspirin. The patient's EKG is suggestive of ischemia. I have discussed the option of proceeding with cardiac catheterization, however the patient is hesitant to proceed. If the patient becomes agreeable, we would proceed with an invasive evaluation to determine if he has significant coronary artery disease. I will follow this patient with you through his hospitalization. TIME: 30 minutes. CLAIRE
[2017-09-01] MEDS: Acetaminophen 325 MG TAB PO PRN (16:34)
--- NOTE | 2017-09-01 21:52 | CON ---
DATE OF CONSULTATION: 09/01/2017 CONSULTING PHYSICIAN: . REASON FOR CONSULTATION: End-stage renal disease evaluation and care. REASON FOR ADMISSION: Shortness of breath. HISTORY OF PRESENT ILLNESS: A 56-year-old male with a history of end-stage renal disease, CHF, anemi a, noncompliance came to the hospital with shortness of breath. The patient missed few dialysis and was having shortness of breath and brought to the hospital. He was found to have hyperkalemia again, had emergent dialysis this morning. No fever or chills. The patient was feeling better. He was no t hypoxic after dialysis. PAST MEDICAL HISTORY: Positive for end-stage renal disease, CHF, hypertension, noncompliance, hyperp arathyroidism, hyperlipidemia. PAST SURGICAL HISTORY: Dialysis access placement. ALLERGIES: No known drug allergies. HOME MEDICATIONS: Include hydroxyzine, hydralazine, clonidine, Nephro-Rosa, Feosol, Coreg, PhosLo, a torvastatin, aspirin, Proventil. SOCIAL HISTORY: No smoking, alcohol, or illicit drug abuse. FAMILY HISTORY: No history of kidney disease. REVIEW OF SYSTEMS: The following complete review of systems was negative, unless otherwise mentioned in the HPI or below: Constitutional: Weight loss or gain, ability to conduct usual activities. Skin: Rash, itching. Eyes: Double vision, pain. ENT/Mouth: Nose bleeding, neck stiffness, pain, tenderness. Cardiovascular: Palpitations, dyspnea on exertion, orthopnea. Respiratory: Shortness of breath, wheezing, cough, hemoptysis, fever, or night sweats. Gastrointestinal: Poor appetite, abdominal pain, heartburn, nausea, vomiting, constipation, or diarr hea. Genitourinary: Urgency, frequency, dysuria, nocturia. Musculoskeletal: Pain, swelling. Neurologic/Psychiatric: Anxiety, depression. Allergy/Immunologic: Skin rash, bleeding tendency. PHYSICAL EXAMINATION: GENERAL: This is a thin-built male in mild distress. VITAL SIGNS: Temperature 98.6, pulse 98, respiratory rate 20, blood pressure 172/103. HEENT: Atraumatic, normocephalic. Oral mucosa is moist. NECK: Supple. CARDIOVASCULAR: S1, S2. Rate and rhythm regular. RESPIRATORY: Clear. ABDOMEN: Soft. MUSCULOSKELETAL: 1+ edema. DERMATOLOGIC: No skin rash. NEUROLOGIC: Alert, awake. PSYCHIATRIC: Mood and affect normal. LABORATORY DATA: Potassium is 6.8, BUN is 111, creatinine is 21.5. ASSESSMENT AND PLAN: 1. End-stage renal disease. The patient will have emergent dialysis for hyperkalemia, fluid overloa d, and shortness of breath. 2. Hypernatremia. 3. Hyperkalemia, severe . 4. Azotemia. 5. Anemia. 6. Edema. 7. Hypertension, most likely from fluid overload. 8. Fluid overload with hypoxia. 9. Noncompliance. 10. Overall prognosis is poor. Plan is to have emergent dialysis and will have dialysis as needed, may be on a daily basis. Advised to limit fluid intake. Thank you for the consult.
[2017-09-02 05:27] LABS: #Eosinphils 0.4 thou/uL (0.0-0.7); #Lymphocytes 0.9 thou/uL (1.20-3.40); #Monocytes 0.6 thou/uL (0.11-0.59); #Neutrophils 3.4 thou/uL (1.40-6.50); %Basophils 0.5 % (0.0-1.0); %Eosinophils 7.7 % (0.0-10.0); %Lymphocytes 16.5 % (21.0-51.0); %Monocytes 10.8 % (0.0-10.0); %Neutrophils 64.5 % (42.0-75.0); Hemoglobin 9.8 g/dL (14.0-18.0); Mean Corpuscular HGB CONC 30.9 g/dL (32.0-36.0); Mean Corpuscular Hemoglobin 29.6 pg (27.0-31.0); Mean Platelet Volume 9.2 fL (7.4-10.4); Platelet Count 168 thou/uL (130-400); RBC Distribution Width 17.8 % (11.5-14.5); Red Blood Cell (RBC) Count 3.32 mill/uL (4.70-6.10); White Blood Cell (WBC) Count 5.3 thou/uL (4.8-10.8)
[2017-09-02 05:36] LABS: Anion Gap 19 mmol/L (10-20); BUN (Urea Nitrogen) 57 mg/dL (8.4-25.7); Calc. Creatinine Clearance 6 mL/min (70-130); Calcium 9.7 mg/dL (7.8-10.44); Carbon Dioxide 30 mmol/L (22-29); Chloride 98 mmol/L (98-107); Estimated GFR-MDRD 6; Glucose 88 mg/dL (70-105); Potassium 4.6 mmol/L (3.5-5.1); Sodium 142 mmol/L (136-145)
[2017-09-02] MEDS: cloNIDine 0.1 MG TAB PO SCH ×3 (09:38→20:19)
[2017-09-02] MEDS: Docusate 100 MG CAP PO SCH ×2 (09:38→20:18)
[2017-09-02] MEDS: Isosorbide Dinitrate 20 MG TAB PO SCH ×3 (09:38→20:19)
[2017-09-02] MEDS: Aspirin 325 mg Enteric Coated Tablet PO SCH (09:38)
[2017-09-02] MEDS: Famotidine 20 MG TAB PO SCH ×2 (09:39→20:20)
[2017-09-02] MEDS: Carvedilol 25 MG TAB PO SCH ×2 (09:54→16:26)
--- NOTE | 2017-09-02 11:42 | PDOC.PN ---
- Subjective Encounter Start Date: 09/02/17 Encounter Start Time: 10:30 -: old records requested/rev Pt seen and examined chart reviewed in its entirety. This is my first visit with this patient Pt on HD machine now, planning to pull 3900mL today. Breathing ok, lying flat. episode earlier of low BP, resolved spontaneously. Denies F/C, no N/V/d/C, no CP. SOB improved. 10 point ROS performed and neg for all systems except as per HPI - Objective Resuscitation Status: Resuscitation Status FULL:Full Resuscitation MAR Reviewed: Yes Vital Signs & Weight: Vital Signs (12 hours) Temp Pulse Resp Pulse Ox 09/02/17 08:00 97.7 F 98 20 99 09/02/17 07:00 97.7 F 09/02/17 04:00 97.9 F 09/02/17 00:00 98 F Weight Weight 119 lb 11.376 oz Most Recent Monitor Data Heart Rate from ECG 100 NIBP 146/96 NIBP BP-Mean 114 Respiration from ECG 22 SpO2 100 I&O: 09/01/17 09/02/17 09/03/17 06:59 06:59 06:59 Intake Total 1308.5 840 Output Total 1200 Balance 108.5 840 Result Diagrams: 09/02/17 04:47 09/02/17 04:47 Radiology Reviewed by me: Yes EKG Reviewed by me: Yes Phys Exam - Physical Examination Constitutional: NAD HEENT: PERRLA, moist MMs, sclera anicteric, oral pharynx no lesions Neck: no nodes, no JVD, supple, full ROM Respiratory: no wheezing, no rhonchi posterior crackles present Cardiovascular: RRR, no significant murmur, no rub Gastrointestinal: soft, non-tender, no distention, positive bowel sounds Musculoskeletal: pulses present, edema present Neurological: non-focal, normal sensation, moves all 4 limbs Lymphatic: no nodes Psychiatric: normal affect, A&O x 3 Skin: no rash, normal turgor, cap refill <2 seconds Dx/Plan (1) Acute on chronic diastolic (congestive) heart failure Code(s): I50.33 - ACUTE ON CHRONIC DIASTOLIC (CONGESTIVE) HEART FAILURE Status : Acute Comment: missed HD, volume overload. HD planned per Dr Gonzalez (2) Hypertensive urgency Code(s): I16.0 - HYPERTENSIVE URGENCY Status: Resolved Comment: BP better iwth fluid removal, CCM with home meds (3) Anemia of renal disease Code(s): D63.1 - ANEMIA IN CHRONIC KIDNEY DISEASE Status: Chronic (4) Dyslipidemia Code(s): E78.5 - HYPERLIPIDEMIA, UNSPECIFIED Status: Chronic (5) ESRD (end stage renal disease) on dialysis Code(s): N18.6 - END STAGE RENAL DISEASE; Z99.2 - DEPENDENCE ON RENAL DIALYSIS Status: Chronic (6) Hypertension Code(s): I10 - ESSENTIAL (PRIMARY) HYPERTENSION Status: Chronic Qualifiers: Hypertension type: essential hypertension Qualified Code(s): I10 - Essential (primary) hypertension (7) Noncompliance of patient with renal dialysis Code(s): Z91.15 - PATIENT'S NONCOMPLIANCE WITH RENAL DIALYSIS Status: Chronic Comment: pt admits to missing HD. - Plan cont current plan of care, PT/OT, respiratory therapy, out of bed/ambulate * . home when okaywith cardiology and rneal. coreg increased per Dr Calles
--- NOTE | 2017-09-02 11:49 | PRG ---
DATE OF SERVICE: 09/02/2017 NEPHROLOGY PROGRESS NOTE SUBJECTIVE: Patient was seen and examined at bedside and overnight events noted. Patient denies any shortness of breath or chest pain or palpitation. No history of nausea or vomiting or diarrhea or f ever or chills or cramps. OBJECTIVE: GENERAL: This is a well-built male in no apparent distress. VITAL SIGNS: Temperature 97.7, pulse 100, respiratory rate 18, blood pressure 148/82. HEENT: Atraumatic, normocephalic. Oral mucosa is moist. NECK: Supple. CARDIOVASCULAR: S1, S2 heard. Rate and rhythm regular. RESPIRATORY: Clear to auscultation. GASTROINTESTINAL: Abdomen is soft. MUSCULOSKELETAL: No tenderness. No edema. DERMATOLOGIC: No skin rash. NEUROLOGIC: Alert and awake and oriented x3. No focal neurologic deficits. Moving all the extremiti es. PSYCHIATRIC: Mood and affect normal. LABORATORY DATA: Potassium is 4.6, BUN is 57, creatinine 7.2. ASSESSMENT AND PLAN: 1. End-stage renal disease. We will continue on dialysis today and then TTS as tolerated. 2. Fluid overload. 3. Anemia. 4. Hypertension. 5. Edema. 6. Hypotension getting better with dialysis. 7. Remove fluid with dialysis as tolerated. The patient was advised to limit fluid intake.
[2017-09-02] MEDS: Acetaminophen 325 MG TAB PO PRN ×2 (14:19→20:19)
[2017-09-02] MEDS: Labetalol HCl 100 MG/20 ML VIAL SLOW IVP PRN (17:21)
[2017-09-02] MEDS: Atorvastatin Calcium 40 MG TAB PO SCH (20:20)
[2017-09-03] MEDS: Labetalol HCl 100 MG/20 ML VIAL SLOW IVP PRN (09:38)
[2017-09-03] MEDS: Docusate 100 MG CAP PO SCH ×2 (09:44→20:09)
[2017-09-03] MEDS: Carvedilol 25 MG TAB PO SCH ×4 (09:44→20:07)
[2017-09-03] MEDS: Aspirin 325 mg Enteric Coated Tablet PO SCH (09:48)
[2017-09-03] MEDS: cloNIDine 0.1 MG TAB PO SCH ×3 (09:49→20:07)
[2017-09-03] MEDS: Famotidine 20 MG TAB PO SCH ×2 (09:49→20:08)
[2017-09-03] MEDS: Acetaminophen 325 MG TAB PO PRN ×2 (10:54→20:14)
[2017-09-03] MEDS: Isosorbide Dinitrate 20 MG TAB PO SCH ×3 (10:56→21:30)
--- NOTE | 2017-09-03 11:59 | CON ---
DATE OF CONSULTATION: 09/03/2017 SERVICE: Pulmonary Medicine REASON FOR CONSULTATION: ICU patient. HISTORY OF PRESENT ILLNESS: The patient is a 56-year-old male with past medical history significant for end-stage renal disease and hypertension. He presented to the emergency department because of elevated blood pressure. This was associated with shortness of breath. He has an ejection fraction of 40%. Either way, overnight, he underwent hemodialysis. His blood pressure and his shortness of breath improved dramatically. He currently denies any fevers, chills, nausea, vomiting or diarrhea. He missed a couple of dialysis sessions recently. PAST MEDICAL HISTORY: 1. End-stage renal disease. 2. Chronic systolic and diastolic heart failure. 3. Hypertension. 4. Medical noncompliance with medications and dialysis. 5. Hyperthyroidism. 6. Chronic anemia. 7. Dyslipidemia. PAST SURGICAL HISTORY: Dialysis access in the right forearm. SOCIAL HISTORY: He lives at home. He denies any alcohol, tobacco or illicit drug use. He has no exposure to chemicals, dust, asbestos or tuberculosis. FAMILY HISTORY: Noncontributory. ALLERGIES: No known drug allergies. MEDICATIONS: A list of his inpatient medications were reviewed. No specific updates were made at this time. REVIEW OF SYSTEMS: General, head, ears, eyes, nose, throat, cardiovascular, respiratory, GI, , musculoskeletal, neurologic and skin is negative except as mentioned in the HPI. PHYSICAL EXAMINATION: VITAL SIGNS: Afebrile, pulse 95, blood pressure 150/91, respirations 15, saturation 100% on room air. GENERAL: The patient is awake, alert, in no apparent distress. LUNGS: Excellent air entry. There is no prolonged expiratory phase. I do not appreciate crackles, wheezing or rhonchi. HEART: Normal rate, regular. ABDOMEN: Soft, nontender, nondistended. Bowel sounds are positive. MUSCULOSKELETAL: No cyanosis or clubbing. No pitting in the bilateral lower extremities. NEUROLOGIC: Grossly nonfocal. LABORATORY DATA: Sodium 142. Basic metabolic profile is otherwise unremarkable except for BUN of 57, and creatinine of 11.61. Troponin is gently up trending to 0.51. Hepatitis B surface antigen is unremarkable. ASSESSMENT: 1. Acute hypoxic respiratory failure. 2. Acute on chronic systolic and diastolic heart failure. 3. End-stage renal disease. 4. Hypertensive emergency, resolved. 5. Non-ST elevation myocardial infarction. 6. Medication noncompliance. PLAN: The patient can be transitioned out of the ICU to telemetry floor. The patient has no further requirements for inpatient Pulmonary or Critical Care opinion. As such, I will sign off. Please call with additional questions or concerns moving forward. Truth be told, he is likely stable for transition home if Cardiology signs off on this transition. 70 minutes have been devoted to this patient in various activities. I personally reviewed all imaging studies and laboratory data noted within this document. For at least half of this time, I was interacting with the patient at the bedside or coordinating care with the care team. For the remainder of the time I was immediately available to the patient in the hospital unit. CLAIRE
--- NOTE | 2017-09-03 12:30 | PDOC.PN ---
- Subjective Encounter Start Date: 09/03/17 Encounter Start Time: 10:50 Pt finishing up HD. Has a headache. no CP, no SOb, no n/V/D/c. 3L net removed again, down almost 9L in 72 hours. breatihng okay, BP up and down. no drops on HD today 10 point ROS performed and neg for all systems except as per HPI - Objective Resuscitation Status: Resuscitation Status FULL:Full Resuscitation MAR Reviewed: Yes Vital Signs & Weight: Vital Signs (12 hours) Temp Pulse Resp Pulse Ox 09/03/17 10:58 98.7 F 09/03/17 09:38 90 09/03/17 08:00 98.0 F 90 16 100 09/03/17 04:00 98 F Weight Weight 120 lb 2.431 oz Most Recent Monitor Data Heart Rate from ECG 95 NIBP 150/91 NIBP BP-Mean 119 Respiration from ECG 15 SpO2 97 I&O: 09/02/17 09/03/17 09/04/17 06:59 06:59 06:59 Intake Total 1308.5 2049.3 240 Output Total 1200 50 0 Balance 108.5 1999.3 240 Result Diagrams: 09/02/17 04:47 09/02/17 04:47 EKG Reviewed by me: Yes Phys Exam - Physical Examination Constitutional: NAD HEENT: PERRLA, moist MMs, sclera anicteric, oral pharynx no lesions Neck: no nodes, no JVD, supple, full ROM Respiratory: no wheezing, no rales, no rhonchi, clear to auscultation bilateral Cardiovascular: RRR, no significant murmur, no rub Gastrointestinal: soft, non-tender, no distention, positive bowel sounds Musculoskeletal: pulses present, edema present Neurological: non-focal, normal sensation, moves all 4 limbs Lymphatic: no nodes Psychiatric: normal affect, A&O x 3 Skin: no rash, normal turgor, cap refill <2 seconds Dx/Plan (1) Acute on chronic diastolic (congestive) heart failure Code(s): I50.33 - ACUTE ON CHRONIC DIASTOLIC (CONGESTIVE) HEART FAILURE Status : Acute Comment: missed HD, volume overload. HD planned per Dr Gonzalez. TTS. home when okay with nephrology (2) Hypertensive urgency Code(s): I16.0 - HYPERTENSIVE URGENCY Status: Resolved Comment: BP better with fluid removal, CCM with home meds (3) Anemia of renal disease Code(s): D63.1 - ANEMIA IN CHRONIC KIDNEY DISEASE Status: Chronic (4) Dyslipidemia Code(s): E78.5 - HYPERLIPIDEMIA, UNSPECIFIED Status: Chronic (5) ESRD (end stage renal disease) on dialysis Code(s): N18.6 - END STAGE RENAL DISEASE; Z99.2 - DEPENDENCE ON RENAL DIALYSIS Status: Chronic (6) Hypertension Code(s): I10 - ESSENTIAL (PRIMARY) HYPERTENSION Status: Chronic Qualifiers: Hypertension type: essential hypertension Qualified Code(s): I10 - Essential (primary) hypertension Comment: adjusting meds. (7) Noncompliance of patient with renal dialysis Code(s): Z91.15 - PATIENT'S NONCOMPLIANCE WITH RENAL DIALYSIS Status: Chronic Comment: pt admits to missing HD. - Plan cont current plan of care, PT/OT, out of bed/ambulate * .
--- NOTE | 2017-09-03 15:31 | PRG ---
DATE OF SERVICE: 09/03/2017 NEPHROLOGY PROGRESS NOTE SUBJECTIVE: Patient was seen and examined at bedside and overnight events noted. Patient denies any shortness of breath or chest pain or palpitation. No history of nausea or vomiting or diarrhea or f ever or chills or cramps. OBJECTIVE: GENERAL: This is a well-built white male in no apparent distress. VITAL SIGNS: Temperature 98.7, pulse 90, respiratory rate 18, blood pressure 111/78. HEENT: Atraumatic, normocephalic. Oral mucosa is moist. NECK: Supple. CARDIOVASCULAR: S1, S2 heard. Rate and rhythm regular. RESPIRATORY: Clear to auscultation. GASTROINTESTINAL: Abdomen is soft. MUSCULOSKELETAL: No tenderness. No edema. DERMATOLOGIC: No skin rash. NEUROLOGIC: Alert and awake and oriented x3. No focal neurologic deficits. Moving all the extremiti es. PSYCHIATRIC: Mood and affect normal. LABORATORY DATA: Potassium is 4.6, BUN is 57, creatinine 11.61. ASSESSMENT AND PLAN: 1. End-stage renal disease. We will continue on dialysis and during dialysis as tolerated. W e will continue on dialysis, TTS and fluid overload. Limit fluid intake. 2. Anemia. 3. Hypertension. 4. Edema. Plan is to continue on dialysis as tolerated.
[2017-09-03] MEDS: Atorvastatin Calcium 40 MG TAB PO SCH (20:07)
[2017-09-04] MEDS: hydrALAZINE 25 MG TAB PO SCH ×3 (08:17→20:07)
[2017-09-04] MEDS: Carvedilol 25 MG TAB PO SCH ×3 (08:17→20:07)
[2017-09-04] MEDS: cloNIDine 0.2 MG TAB PO SCH ×3 (08:17→20:07)
[2017-09-04] MEDS: Aspirin 325 mg Enteric Coated Tablet PO SCH (08:18)
[2017-09-04] MEDS: Docusate 100 MG CAP PO SCH (08:22)
--- NOTE | 2017-09-04 09:21 | PRG ---
DATE OF SERVICE: 09/04/2017 SERVICE: Pulmonary Medicine INTERVAL HISTORY: The patient is doing fine from a respiratory standpoint. He is breathing comforta sherman on room air. He denies any current fevers, chills, nausea, vomiting or chest discomfort. Otherw ise, he is returning to his usual state of health and there were no overnight events. PHYSICAL EXAMINATION: VITAL SIGNS: Afebrile, pulse 81, blood pressure 148/109, respirations 123, saturation 99% on room ai r. GENERAL: The patient is awake, alert, in no apparent distress. LUNGS: Excellent air entry. Crackles are gone. HEART: Normal rate, regular. ABDOMEN: Soft, nontender, nondistended, bowel sounds positive. MUSCULOSKELETAL: No cyanosis or clubbing. There is no pitting in the bilateral lower extremities. NEUROLOGIC: Grossly nonfocal. ASSESSMENT: 1. Acute hypoxic respiratory failure, resolved. 2. End-stage renal disease. 3. Hypertensive emergency, resolved. 4. Medical noncompliance. 5. Non-ST elevation myocardial infarction. DISCUSSION AND PLAN: The patient is stable for transition out of the ICU to the telemetry unit or [facility] if Cardiology is okay with that. Pulmonary will continue to follow while the patient re ryan in this location, but when he lands on the floor, we will sign off. Please call with bana l questions or concerns moving forward.
[2017-09-04] MEDS: Isosorbide Dinitrate 20 MG TAB PO SCH ×2 (09:39→15:29)
--- NOTE | 2017-09-04 11:25 | PRG ---
DATE OF SERVICE: 09/04/2017 SUBJECTIVE: Patient was seen and examined at bedside and overnight events noted. Patient denies any shortness of breath or chest pain or palpitation. No history of nausea or vomitin g or diarrhea or fever or chills or cramps. OBJECTIVE: GENERAL: This is a well-built male, in no apparent distress. VITAL SIGNS: Temperature 98.3, pulse 81, respiratory rate 18, blood pressure 148/109. HEENT: Atraumatic, normocephalic. Oral mucosa is moist NECK: Supple. CARDIOVASCULAR: S1 and S2 heard. Rate and rhythm regular. RESPIRATORY: Clear to auscultation. GASTROINTESTINAL: Abdomen is soft. MUSCULOSKELETAL: No tenderness. No edema. DERMATOLOGIC: No skin rash. NEUROLOGIC: Alert and awake and oriented X3, No focal neurologic deficits. Moving all the extremitie s. PSYCHIATRIC: Mood and affect normal. LABORATORY DATA: Potassium is 4.6, BUN is 57, creatinine 11.6. ASSESSMENT AND PLAN: 1. End-stage renal disease. We will continue on hemodialysis as tolerated TTS. No dialysis today. 2. Edema with fluid overload. 3. Anemia. 4. Hypertension. 5. Overall stable. We will continue on dialysis Thursday, , and Thursday as tolerated. We will follow.
--- NOTE | 2017-09-04 16:34 | DIS ---
DATE OF ADMISSION: 09/01/2017 DATE OF DISCHARGE: 09/04/2017 PRIMARY CARE PHYSICIAN: Beatriz Nails M.D. PRIMARY HEAD WAITER/WAITRESS BANQUET: Ingris Gonzalez M.D. The patient dialyzes at the [facility]. DISCHARGE DIAGNOSES: 1. Pulmonary edema. 2. Acute hypoxemic respiratory failure. 3. End-stage renal disease, on hemodialysis. 4. Noncompliance with hemodialysis. 5. Essential hypertension, uncontrolled. 6. Hypertensive urgency. 7. Acute on chronic combined systolic and diastolic congestive heart failure. 8. Demand ischemia. CONSULTATIONS: 1. Cardiology, Dr. Shekhar Calles. 2. Nephrology, Dr. Ingris Gonzalez. 3. Pulmonary Critical Care, Dr. Mikie Agrawal. PROCEDURES: Echocardiogram, 09/02/2017, showed EF of 40%-45%, normal LA, normal LV, severe concentri c LVH, impaired relaxation compatible with diastolic dysfunction, mild MR, mild AI and mild TR. HOSPITAL COURSE: Mr. Saini is a 56-year-old [place] male with the above history who presents to the emergency department with shortness of breath. The patient readily admits to taking a weekly va cation for hemodialysis, goes 2 out of his 3 times at best. He subsequently came in short of breath, was found to have pulmonary edema and hypoxemia and was admitted to the ICU. Dr. Gonzalez was consul keenan, Dr. Calles and dialysis was arranged. HOSPITAL COURSE: The patient was seen and examined by Dr. Robe Pink and admitted to the CCU. The patient underwent emergent dialysis at night and overnight blood pressure still remained high, but im proved. Approximately 3 liters net was removed. On 09/02/2017, patient underwent dialysis #2 with another 3 liters of fluid removal and subsequently breathing improved. He was started to be weaned off of oxygen. On 09/03/2017 the patient had his th ird dialysis with the third 3 liters negative fluid balance. He subsequently was weaned off oxygen a nd blood pressures still remained somewhat elevated. Through his dialysis, blood pressure usually re mained fairly normal, he did get his Imdur during the second dialysis and dropped his blood pressures at one point to the systolic 50s and had to be given some fluid back. Today, 09/04/2017, he needed no further dialysis, he was started on hydralazine 50 mg t.i.d. per his home dosing. Blood pressure normalized. He was stable discharged with outpatient followup. Rom roberto who has been seeing the patient regularly did see the patient this time and did talk with shay irvin at length regarding his need to either convert to comfort care or to do a dialysis treatments regul arelis. He seemed to be slow to understand. PHYSICAL EXAMINATION: The patient was seen and examined on the day of discharge. Discharge plan and disposition was discussed with the patient face to face at the bedside. DISCHARGE MEDICATIONS: 1. PhosLo 2001 mg p.o. t.i.d. a.c., prescription sent 2. Albuterol sulfate 200 mg inhaled q.6h. p.r.n. shortness of breath or wheezing. 3. Aspirin 81 mg daily. 4. Atorvastatin 40 mg p.o. at bedtime. 5. Carvedilol 25 mg p.o. b.i.d., prescription sent. 6. Clonidine 0.1 mg p.o. q.8 h., prescription sent. 7. Famotidine 20 mg p.o. daily. 8. Iron sulfate 325 mg p.o. q.a.m. 9. Nephro-Rosa daily. 10. Hydralazine 50 mg p.o. t.i.d., prescription sent. 11. Hydroxyzine 25 mg p.o. q.8 h. p.r.n. itching or sleep. 12. Isosorbide mononitrate 30 mg p.o. daily to resume. FOLLOWUP APPOINTMENTS: 1. Primary care physician within the week. 2. Dr. Gonzalez in 2-3 weeks. DISCHARGE DIET: Renal, heart healthy recommended. Fluid restriction per Renal. DIET: Regular strongly encouraged. DISCHARGE ACTIVITY: Per cardiopulmonary limits. DISCHARGE CONDITION: Stable. DISPOSITION: Will be discharged home via private vehicle back with his family.
[2017-09-04] MEDS: Atorvastatin Calcium 40 MG TAB PO SCH (20:07)
[2017-09-04 20:08] VITALS: BP 120/80
[2017-09-04] MEDS ORDERED: Famotidine 20 MG TAB PO SCH (21:00)
[2017-09-04 21:02] VITALS: TEMP 98.7
--- NOTE | 2017-10-03 19:54 | EKG ---
Test Reason : Blood Pressure : / mmHG Vent. Rate : 129 BPM Atrial Rate : 129 BPM P-R Int : 142 ms QRS Dur : 090 ms QT Int : 300 ms P-R-T Axes : 044 -14 082 degrees QTc Int : 439 ms Sinus tachycardia Left atrial enlargement Left ventricular hypertrophy with repolarization abnormality Abnormal ECG Confirmed by KACIE HEWITT ([id number]), graphics editor MACRINA CHANEL ([id number]) on 10/03/2017 7:54:25 PM Referred By: ANAYELI Confirmed By:KACIE HEWITT
== END 2017-09-04 21:45 | disposition home or self-care (01) | DRG 291 ==
LOC: ERS 23:50 → OBSVTOIN 09-01 00:02 → 2SW 09-01 00:02 → CCU 09-01 14:31
PROVIDERS: ADMIT Internal Medicine; ATTEND Internal Medicine
PROC: 5A1D70Z Performance of Urinary Filtration, Intermittent, Less than 6 Hours Per Day (ICD-10-PCS; principal; 2017-09-01)
DX: I13.2 Hypertensive heart and chronic kidney disease with heart failure and with stage 5 chronic kidney disease, or end stage renal disease (principal); I50.43 Acute on chronic combined systolic (congestive) and diastolic (congestive) heart failure; J96.21 Acute and chronic respiratory failure with hypoxia; E87.0 Hyperosmolality and hypernatremia; N18.6 End stage renal disease; E87.2 Acidosis; I24.8 Other forms of acute ischemic heart disease; Z99.2 Dependence on renal dialysis; Z91.15 Patient's noncompliance with renal dialysis; I16.0 Hypertensive urgency; Z51.5 Encounter for palliative care; E87.5 Hyperkalemia; I25.5 Ischemic cardiomyopathy
CPT/HCPCS: 36415; 80048; 82553; 84484; 85025; 87340; 90935; 93005; 93306; 94760; G0257; J0360

== ENCOUNTER 2020-08-19 14:15 | Inpatient (IN) | payer OTHER ==
[~2020-08-19 14:15] MED LIST: Heparin 1,000 UNITS/ML VIAL ONE
[2020-08-19] MEDS ORDERED: Acetaminophen 325 MG TAB PO PRN (17:11)
[2020-08-19] MEDS ORDERED: EPOETIN ALFA-EPBX (ESRD) 10,000 UNIT/ML VIAL IVP PRN (17:19)
[2020-08-19] MEDS ORDERED: hydrALAZINE 20 MG/ML VIAL SLOW IVP PRN (17:19)
[2020-08-19] MEDS ORDERED: Guaifenesin DM 100-10/5 ML UDCUP PO PRN (17:19)
--- NOTE | 2020-08-19 17:24 | PDOC.HHP ---
Hospitalist HPI - History of Present Illness AV fistula thrombosis/stenosis History of Present Illness: 59-year-old gentleman with a history of end-stage renal disease on hemodialysis, hypertension, heart failure, noncompliance with medication and dialysis, diagnosed with AV fistula stenosis/fibrosis at [facility] was transferred here in order to have fistulogram and angioplasty done under anesthesia by IR. Patient was initially diagnosed with cellulitis of the upper extremity and treated with broad-spectrum antibiotics including cefepime and vancomycin with no improvement. His right arm was swollen. Antibiotics was stopped. Fistulogram was performed which showed stenosis of the AV fistula. The procedure was stopped before angioplasty could be performed because patient was agitated and the plan was to transfer him here in order to have the procedure done under anesthesia. Patient also noted to have uncontrolled blood pressure during his stay at [place]. Patient was agitated during my examination on the floor and was wanting to leave the hospital. He was oriented to self but not to place or time during my examination. He has very poor insight as to his current medical condition and plan of care and deemed incapable of making informed decision. Hospitalist History - Past Medical History Heme/Onc: reports: Anemia NOS (Anemia of chronic disease from ESRD) Musculoskeletal: reports: Chronic low back pain (Patient reports chronic low back pain) Renal/: reports: Chronic renal insuff (ESRD, on hemodialysis) Dermatology: reports: Eczema Other Medical History: End-stage renal disease on hemodialysis - Past Surgical History Past Surgical History: reports: Other (Dialysis fistula access on right forearm) - Family History Family History: denies: cancer, cardiac disorder, cerebrovascular accident - Social History Alcohol: reports: None Drugs: reports: none - Exam General Appearance: NAD General - other findings: Awake Eye: PERRL, anicteric sclera ENT: normocephalic atraumatic, moist mucosa Neck: supple Heart: RRR, no murmur, normal peripheral pulses Respiratory: CTAB, no wheezes, no rales Gastrointestinal: soft, non-tender, non-distended, normal bowel sounds Extremities - other findings: Right upper extremity edema, right arm AV fistula. Skin: normal turgor Neurological: cranial nerve grossly intact, no weakness, no focal deficits Musculoskeletal: normal tone, normal strength Psychiatric: oriented to person Psychiatric - other findings: Poor insight, agitated. Hospitalist Results - Labs Lab results: Hemoglobin 8.9, WBC 10.5 Potassium 5.1, BUN 59, creatinine 9.74, glucose 122. Hospitalist H&P A/P - Problem (1) AV fistula thrombosis Code(s): T82.868A - THROMBOSIS DUE TO VASCULAR PROSTH DEV/GRFT, INIT Status: Acute (2) Uncontrolled hypertension Code(s): I10 - ESSENTIAL (PRIMARY) HYPERTENSION Status: Acute (3) Anemia of chronic disease Code(s): D63.8 - ANEMIA IN OTHER CHRONIC DISEASES CLASSIFIED ELSEWHERE Status: Chronic (4) Cardiomyopathy Code(s): I42.9 - CARDIOMYOPATHY, UNSPECIFIED Status: Chronic Qualifiers: Cardiomyopathy type: unspecified Qualified Code(s): I42.9 - Cardiomyopathy, unspecified (5) ESRD (end stage renal disease) on dialysis Code(s): N18.6 - END STAGE RENAL DISEASE; Z99.2 - DEPENDENCE ON RENAL DIALYSIS Status: Chronic (6) Noncompliance of patient with renal dialysis Code(s): Z91.15 - PATIENT'S NONCOMPLIANCE WITH RENAL DIALYSIS Status: Chronic - Plan Plan: Patient admitted to the medical floor. Renal diet now. N.p.o. at midnight for fistulogram and angioplasty tomorrow. Consult to nephrology-Dr. Gonzalez is awake patient is here. Resume his oral antihypertensives. Monitor CBC and blood chemistry. Heparin subcu for DVT prophylaxis. Erythropoietin per nephrology Iron replacement therapy. We will give a dose of IM Haldol for agitation.
[2020-08-19] MEDS ORDERED: Haloperidol Lactate 5 MG/ML VIAL IM SCH (17:30)
[2020-08-19] MEDS: hydrALAZINE 25 MG TAB PO SCH (21:10)
[2020-08-19] MEDS: cloNIDine 0.1 MG TAB PO SCH (21:11)
[2020-08-19] MEDS: Heparin 5,000 UNITS/ML VIAL SC SCH (21:11)
[2020-08-20 06:08] LABS: #Eosinphils 0.3 thou/uL (0.0-0.7); #Lymphocytes 0.9 thou/uL (1.20-3.40); #Neutrophils 6.7 thou/uL (1.40-6.50); %Basophils 0.4 % (0.0-1.0); %Eosinophils 3.1 % (0.0-10.0); %Lymphocytes 9.9 % (21.0-51.0); %Monocytes 11.1 % (0.0-10.0); %Neutrophils 75.5 % (42.0-75.0); Hemoglobin 10.4 g/dL (14.0-18.0); Mean Corpuscular HGB CONC 31.5 g/dL (32.0-36.0); Mean Corpuscular Hemoglobin 29.1 pg (27.0-31.0); Mean Corpuscular Volume 92.4 fL (78.0-98.0); Mean Platelet Volume 8.7 fL (7.4-10.4); Platelet Count 220 thou/uL (130-400); RBC Distribution Width 17.1 % (11.5-14.5); Red Blood Cell (RBC) Count 3.56 mill/uL (4.70-6.10); White Blood Cell (WBC) Count 8.9 thou/uL (4.8-10.8)
[2020-08-20 06:42] LABS: Anion Gap 20 mmol/L (10-20); BUN (Urea Nitrogen) 45 mg/dL (8.4-25.7); Calc. Creatinine Clearance 8 mL/min (70-130); Calcium 10.3 mg/dL (7.8-10.44); Carbon Dioxide 27 mmol/L (22-29); Chloride 98 mmol/L (98-107); Glucose 101 mg/dL (70-105); Potassium 5.2 mmol/L (3.5-5.1); Sodium 140 mmol/L (136-145)
[2020-08-20] MEDS: hydrALAZINE 25 MG TAB PO SCH ×4 (07:39→20:41)
[2020-08-20] MEDS: Heparin 5,000 UNITS/ML VIAL SC SCH ×2 (07:40→20:42)
[2020-08-20] MEDS: Folic Acid/Vit B Comp W-C PO SCH (07:41)
[2020-08-20] MEDS: Ferrous Sulfate 325 MG TAB PO SCH (07:41)
[2020-08-20] MEDS: Calcium Acetate 667 MG CAP PO SCH ×3 (07:41→17:07)
[2020-08-20] MEDS: cloNIDine 0.1 MG TAB PO SCH ×3 (08:14→20:42)
[2020-08-20] MEDS: Carvedilol 25 MG TAB PO SCH ×2 (08:14→17:07)
[2020-08-20] MEDS: Famotidine 20 MG TAB PO SCH (08:15)
[2020-08-20] MEDS: Minoxidil 2.5 MG TAB PO SCH (08:15)
[2020-08-20] MEDS ORDERED: Prevnar 13-Val Conj/PF 0.5 ML SYRINGE IM ONE (09:00)
[2020-08-20] MEDS ORDERED: PROPOFOL 200 MG/20 ML VIAL ONE (11:00)
[2020-08-20] MEDS ORDERED: Ondansetron PF 4 MG/2 ML Vial ONE (11:00)
[2020-08-20] MEDS ORDERED: PHENYLEPHRINE-NS 100 MCG/ML 10 ML SYRINGE ONE ×2 (11:00→12:38)
[2020-08-20] MEDS ORDERED: Lidocaine 1% PF 5 ML VIAL ONE (11:00)
[2020-08-20] MEDS ORDERED: Iopamidol 300 61% 100 ML VIAL FS ONE (12:28)
[2020-08-20] MEDS ORDERED: Fentanyl 100 MCG/2 ML VIAL ONE (12:38)
--- NOTE | 2020-08-20 14:30 | SPC ---
Percutaneous balloon angioplasty superior vena cava and right subclavian vein Sonographic guided vascular access Superior venacavogram HISTORY: Renal failure. Arm swelling. Superior vena cava stenosis. Anesthesia administration and care as per the anesthesia department. After obtaining informed consent, right upper extremity was prepped and draped in usual sterile fashi on. Sonographic evaluation shows right arm dialysis fistula to be patent, with outflow to the brachial venous system. Sterile technique, buffered local anesthesia, sonographic guidance, and a 22-gauge needle were used t o carefully access the brachial vein just above the level of the antecubital fossa. A 5 Gibraltarian micropuncture sheath was placed, and a 0.035 Glidewire to the SVC through a 6 Gibraltarian sheath.. A 5 [place] nch straight catheter was placed to the peripheral subclavian vein. Angiographic imaging shows areas of stenosis at the central subclavian vein and the superior vena cav a. A 10 mm x 4 cm balloon was carefully placed over a 0.035 Glidewire to the level of the SVC stenosis. Full balloon profile achieved with inflation. Stricture relieved at 2 tania. A total of 3 balloon inflations were made. Repeat imaging showed improved caliber of the SVC. Balloon was then placed to the stricture at the ce ntral subclavian vein. Full balloon profile relieved to the stricture at 3 tania. A total of 3 balloon dilatations performed. Repeat imaging shows samaritan of vessel caliber with good flow. No significant reflux into the int ernal jugular vein. Sheath was removed and hemostasis obtained using direct pressure. Patient tolerated the procedure well and was returned to preop in good condition. IMPRESSION : Technically successful percutaneous balloon angioplasty of focal stenoses at the right subclavian vei n and superior vena cava. Religion of flow and vessel caliber.
--- NOTE | 2020-08-20 19:02 | PRG ---
DATE OF SERVICE: 08/20/2020 SUBJECTIVE: A 59-year-old male being seen for end-stage kidney disease. The patient denies nausea, vomiting, or chest pain. PHYSICAL EXAMINATION: General: The patient is awake and alert. Vital Signs: Afebrile, pulse 75, breathing at 16, blood pressure 114/70. HEENT: Head normocephalic and atraumatic. Eyes intact, no ulcers. Nose intact, no ulcers. Ears intact, no ulcers. Neck: Supple. No JVD. Chest: Symmetrical and clear. Cardiovascular: Shows S1 and S2, no rub, no murmur. Gastrointestinal: Abdomen is soft, bowel sounds positive. Extremities: Show no edema or ulcers. Skin: Shows no rash or petechiae. Musculoskeletal: Shows no joint swelling or stiffness. Genitourinary: Shows no Hunt or CVA tenderness. Neurologic: Motor intact. Cranial nerves intact. LABORATORY DATA: Labs reviewed. ASSESSMENT AND PLAN: 1. Stage 6 chronic kidney disease, plan dialysis. 2. Hypertension, stable. 3. Anemia, stable. 4. Hyperkalemia. Plan dialysis. 5. Clotted access. The patient will get a fistulogram today. Job ID: [id number]
--- NOTE | 2020-08-20 20:31 | PDOC.HOSPP ---
- Subjective Encounter Date: 08/20/20 Encounter Time: 19:40 Subjective: f/u for R AV fistula thrombosis s/p fistulogram and angioplasty with successful return of flow. No new events noted. - Objective Vital Signs & Weight: Vital Signs (12 hours) Temp Pulse Resp BP BP BP Pulse Ox 08/20/20 19:48 98.1 F 87 16 116/71 97 08/20/20 15:13 87 158/86 H 08/20/20 15:12 158/86 H 08/20/20 14:40 97.4 F L 82 16 151/89 H 95 08/20/20 11:12 98 F 82 14 114/70 92 L Weight Weight 120 lb I&O: 08/19/20 08/20/20 08/21/20 06:59 06:59 06:59 Intake Total 1690 Balance 1690 Result Diagrams: 08/20/20 05:57 08/20/20 05:57 Additional Labs: Microbiology 08/14/20 20:27 Blood - Unknown Blood Culture - Final NO GROWTH IN 5 DAYS 08/14/20 19:15 Blood - Unknown Blood Culture - Final NO GROWTH IN 5 DAYS Radiology Reviewed by me: Yes (AV shunt angiogram - 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) Hospitalist ROS - Medication Medications: Active Medications Generic Name Dose Route Start Last Admin Trade Name Freq PRN Reason Stop Dose Admin Calcium Acetate 2,001 mg 08/20/20 08:00 08/20/20 17:07 Calcium Acetate 667 Mg Cap PO 2,001 mg TID-WM SHAUNNA Administration Carvedilol 50 mg 08/20/20 08:00 08/20/20 17:07 Carvedilol 25 Mg Tab PO 50 mg BID-WM SHAUNNA Administration Clonidine 0.1 mg 08/19/20 21:00 08/20/20 15:12 Clonidine 0.1 Mg Tab PO 0.1 mg TID SHAUNNA Administration Famotidine 20 mg 08/20/20 09:00 08/20/20 08:15 Famotidine 20 Mg Tab PO 20 mg DAILY SHAUNNA Administration Ferrous Sulfate 325 mg 08/20/20 08:00 08/20/20 07:41 Ferrous Sulfate 325 Mg Tab PO Not Given QA- SHAUNNA Heparin Sodium (Porcine) 5,000 units 08/19/20 21:00 08/20/20 07:40 Heparin 5,000 Units/Ml Vial SC Not Given BID SHAUNNA Hydralazine HCl 75 mg 08/19/20 21:00 08/20/20 15:13 Hydralazine 25 Mg Tab PO 75 mg TID SHAUNNA Administration Isosorbide Mononitrate 30 mg 08/20/20 09:00 08/20/20 08:15 Isosorbide Mononitrate Er 30 Mg Tab PO 30 mg DAILY SHAUNNA Administration Minoxidil 2.5 mg 08/20/20 09:00 08/20/20 08:15 Minoxidil 2.5 Mg Tab PO 2.5 mg DAILY SHAUNNA Administration Vitamin B Complex/Vit C/Folic Acid 1 tab 08/20/20 09:00 08/20/20 07:41 Folic Acid/Vit B Comp W-C PO Not Given DAILY SHAUNNA - Exam General Appearance: NAD, awake alert Eye: PERRL, anicteric sclera ENT: normocephalic atraumatic, no oropharyngeal lesions Neck: supple, symmetric, no JVD, no thyromegaly, no lymphadenopathy Heart: RRR, no gallops, no rubs, normal peripheral pulses Heart - other findings: S1, S2 Respiratory: CTAB, no wheezes, no rales, no ronchi, normal chest expansion Gastrointestinal: soft, non-tender, non-distended, normal bowel sounds Extremities: 1+ LE edema Extremities - other findings: RUE edema, AV fistula in place Skin: normal turgor Neurological: cranial nerve grossly intact, no new deficit Musculoskeletal: normal tone, generalized weakness Psychiatric: oriented to person, flat affect, somnolent Hosp A/P (1) AV fistula thrombosis Code(s): T82.868A - THROMBOSIS DUE TO VASCULAR PROSTH DEV/GRFT, INIT Status: Acute Plan: s/p percutaneous balloon angioplasty of R subclavian vein/SVC with successful return of flow (2) ESRD (end stage renal disease) on dialysis Code(s): N18.6 - END STAGE RENAL DISEASE; Z99.2 - DEPENDENCE ON RENAL DIALYSIS Status: Chronic Plan: HD per Renal service (3) Anemia of renal disease Code(s): D63.1 - ANEMIA IN CHRONIC KIDNEY DISEASE Status: Chronic Plan: Stable currently, serial monitoring (4) Hypertension Code(s): I10 - ESSENTIAL (PRIMARY) HYPERTENSION Status: Chronic Qualifiers: Hypertension type: essential hypertension Qualified Code(s): I10 - Essential (primary) hypertension Plan: Resume home BP regimen, serial monitoring (5) Noncompliance of patient with renal dialysis Code(s): Z91.15 - PATIENT'S NONCOMPLIANCE WITH RENAL DIALYSIS Status: Chronic - Plan health care social worker, out of bed/ambulate, DVT proph w/SCDs Stable overall HD per Renal service Resume home BP regimen OOB/ambulate EPO qweekly AM lab: BMP, CBC Likely d/c in 24h
[2020-08-20] MEDS ORDERED: hydrOXYzine 10 MG TAB PO PRN (20:36)
[2020-08-21] MEDS: hydrALAZINE 25 MG TAB PO SCH ×2 (08:27→14:54)
[2020-08-21] MEDS: Folic Acid/Vit B Comp W-C PO SCH (08:27)
[2020-08-21] MEDS: cloNIDine 0.1 MG TAB PO SCH ×2 (08:27→14:54)
[2020-08-21] MEDS: Sevelamer Carbonate 800 MG TAB PO SCH ×3 (08:27→17:29)
[2020-08-21] MEDS: Carvedilol 25 MG TAB PO SCH ×2 (08:27→17:29)
[2020-08-21] MEDS: Famotidine 20 MG TAB PO SCH (08:28)
[2020-08-21] MEDS: Ferrous Sulfate 325 MG TAB PO SCH (08:28)
[2020-08-21] MEDS: Minoxidil 2.5 MG TAB PO SCH (08:29)
[2020-08-21] MEDS: Heparin 5,000 UNITS/ML VIAL SC SCH (08:29)
--- NOTE | 2020-08-21 09:25 | DIS ---
DATE OF ADMISSION: 08/19/2020 DATE OF DISCHARGE: 08/21/2020 DISCHARGE DIAGNOSES: 1. Right upper extremity arteriovenous fistula thrombosis, status post balloon angioplasty with successful return of flow. 2. End-stage renal disease with hemodialysis. 3. Noncompliance with medical therapy. 4. Anemia of chronic kidney disease. 5. Hypertension, stable. CONSULTATIONS: Dr. Freeman with Nephrology Service. PERTINENT LABORATORY AND X-RAY FINDINGS: Potassium 5.2, creatinine 7.82. CBC showed a hemoglobin of 10.4, hematocrit 33, platelet count 220. AV shunt angiogram, dated 08/20/2020, showed stenosis at the central subclavian vein and superior vena cava. HOSPITAL COURSE: The patient was admitted to the medical floor after presenting with increased right upper extremity swelling in the context of previous right upper extremity AV fistula placement with evidence of stenosis. The patient was initially diagnosed with cellulitis of the upper extremity and placed on oral antibiotic therapy, however, the edema to the right upper extremity persisted. The patient underwent angiogram of the AV fistula showing stenosis of the right subclavian vein and superior vena cava. The patient underwent successful balloon angioplasty of the stenotic region with successful return of flow. The patient was able to continue regular hemodialysis without complication. Overall, the patient did remain clinically stable during the hospital course, tolerating regular oral intake with stable vital signs. I have examined the patient at the time of discharge and discussed followup instructions. The patient verbalized understanding and in agreement, ready for discharge on 08/21/2020. DISCHARGE MEDICATIONS: 1. Atarax 10 mg p.o. q.8 hours p.r.n. 2. Carvedilol 25 mg p.o. b.i.d. 3. Clonidine 0.1 mg p.o. t.i.d. 4. Renvela 3200 mg p.o. t.i.d. with meals. 5. Isosorbide mononitrate 30 mg p.o. daily. 6. Lipitor 40 mg p.o. at bedtime. 7. Minoxidil 2.5 mg p.o. daily. 8. Folic acid with vitamin B 1 tablet p.o. daily. 9. Pepcid 20 mg p.o. daily. 10. Calcium carbonate 1000 mg p.o. q.4 hours p.r.n. FOLLOWUP: The patient may follow up with Dr. Freeman with Nephrology Service with hemodialysis 3 times per week. CONDITION ON DISCHARGE: Fair. ACTIVITY: Ad-scarlet. DIET: Renal. CODE STATUS: Full. DISPOSITION: To home on 08/21/2020. TIME SPENT: Total time preparing and coordinating discharge, 33 minutes. Job ID: [id number]
--- NOTE | 2020-08-21 12:28 | PRG ---
DATE OF SERVICE: 08/21/2020 SUBJECTIVE: This is a 59-year-old male, being seen for end-stage renal disease. The patient denied any nausea, vomiting, or chest pain. PHYSICAL EXAMINATION: General: The patient is awake and alert. Vital Signs: Afebrile, pulse 91, breathing at 16, blood pressure 154/85. HEENT: Head normocephalic and atraumatic. Eyes intact, no ulcers. Nose intact, no ulcers. Ears intact, no ulcers. Neck: Supple. No JVD. Chest: Symmetrical and clear. Cardiovascular: Shows S1 and S2, no rub, no murmur. Gastrointestinal: Abdomen is soft, bowel sounds positive. Extremities: Show no edema or ulcers. Skin: Shows no rash or petechiae. Musculoskeletal: Shows no joint swelling or stiffness. Genitourinary: Shows no Hunt or CVA tenderness. Neurologic: Motor intact. Cranial nerves intact. LABORATORY DATA: Reviewed. ASSESSMENT AND PLAN: 1. Chronic kidney disease, stage 6, stable. 2. Hypertension, stable. 3. Anemia, stable. 4. Medication based on GFR, appropriate. 5. Hyperkalemia. Dialysis planned. Job ID: [id number]
[2020-08-21 17:33] VITALS: BP 150/89; TEMP 97.4
== END 2020-08-21 18:31 | disposition home or self-care (01) | DRG 252 ==
LOC: SURG A 16:18
PROVIDERS: ADMIT Internal Medicine; ATTEND Family Medicine
PROC: 027V3ZZ Dilation of Superior Vena Cava, Percutaneous Approach (ICD-10-PCS; principal; 2020-08-20)
PROC: 05753ZZ Dilation of Right Subclavian Vein, Percutaneous Approach (ICD-10-PCS; 2020-08-20)
PROC: B516ZZZ Fluoroscopy of Right Subclavian Vein (ICD-10-PCS; 2020-08-20)
PROC: B518ZZZ Fluoroscopy of Superior Vena Cava (ICD-10-PCS; 2020-08-20)
PROC: 5A1D70Z Performance of Urinary Filtration, Intermittent, Less than 6 Hours Per Day (ICD-10-PCS; 2020-08-21)
DX: T82.868A Thrombosis due to vascular prosthetic devices, implants and grafts, initial encounter (principal); N18.6 End stage renal disease; I13.2 Hypertensive heart and chronic kidney disease with heart failure and with stage 5 chronic kidney disease, or end stage renal disease; I42.9 Cardiomyopathy, unspecified; Y83.2 Surgical operation with anastomosis, bypass or graft as the cause of abnormal reaction of the patient, or of later complication, without mention of misadventure at the time of the procedure; D63.1 Anemia in chronic kidney disease; Z20.822 Contact with and (suspected) exposure to COVID-19; I50.9 Heart failure, unspecified; G89.29 Other chronic pain; M54.5 Low back pain; E87.5 Hyperkalemia; Z91.15 Patient's noncompliance with renal dialysis; Z99.2 Dependence on renal dialysis; Z91.19 Patient's noncompliance with other medical treatment and regimen; Z79.899 Other long term (current) drug therapy
CPT/HCPCS: 36415; 36901; 36902; 36905; 76942; 80048; 85025; 90935; C1725; C1887; G0257; J1644; J2405; J2704; J3010; Q9967

== ENCOUNTER 2021-05-27 18:17 | Inpatient (IN) | payer OTHER ==
[2021-05-27] MEDS ORDERED: Metoprolol Tartrate 5 MG/5 ML VIAL ONE ×2 (19:18→20:24)
[2021-05-27 19:23] LABS: #Eosinphils 0.2 thou/uL (0.0-0.7); #Lymphocytes 0.9 thou/uL (1.20-3.40); #Monocytes 0.6 thou/uL (0.11-0.59); #Neutrophils 4.7 thou/uL (1.40-6.50); %Basophils 0.3 % (0.0-1.0); %Eosinophils 2.7 % (0.0-10.0); %Lymphocytes 13.5 % (21.0-51.0); %Monocytes 9.2 % (0.0-10.0); %Neutrophils 74.3 % (42.0-75.0); Hemoglobin 9.7 g/dL (14.0-18.0); Mean Corpuscular HGB CONC 33.2 g/dL (32.0-36.0); Mean Corpuscular Hemoglobin 30.5 pg (27.0-31.0); Mean Corpuscular Volume 91.9 fL (78.0-98.0); Mean Platelet Volume 8.1 fL (7.4-10.4); Platelet Count 244 thou/uL (130-400); RBC Distribution Width 15.1 % (11.5-14.5); Red Blood Cell (RBC) Count 3.16 mill/uL (4.70-6.10); White Blood Cell (WBC) Count 6.3 thou/uL (4.8-10.8)
[2021-05-27 19:47] LABS: ALT (SGPT) 19 U/L (8-55); AST (SGOT) 12 U/L (5-34); Albumin 3.8 g/dL (3.5-5.0); Alkaline Phosphatase 80 U/L (40-110); Anion Gap 21 mmol/L (10-20); BUN (Urea Nitrogen) 68 mg/dL (8.4-25.7); Bilirubin, Total 0.4 mg/dL (0.2-1.2); Calc. Creatinine Clearance 0 mL/min (70-130); Calcium 9.9 mg/dL (7.8-10.44); Carbon Dioxide 30 mmol/L (22-29); Chloride 99 mmol/L (98-107); Globulin 2.9 g/dL (2.4-3.5); Glucose 164 mg/dL (70-105); Potassium 6.2 mmol/L (3.5-5.1); Protein, Total 6.7 g/dL (6.0-8.3); Sodium 144 mmol/L (136-145)
[2021-05-27 20:04] LABS: CKMB 4.6 ng/mL (0-6.6)
[2021-05-27] MEDS ORDERED: Sodium Bicarb 50 MEQ/50 ML Abboject 8.4% SYRINGE ONE (20:25)
[2021-05-27] MEDS ORDERED: Dextrose 50% Abboject 50 ML SYRINGE ONE (20:25)
[2021-05-27] MEDS ORDERED: Calcium Gluc 4.6 MEQ/10 ML (100 MG/ML) ONE (20:25)
[2021-05-27] MEDS ORDERED: Insulin Regular 300 UNITS/3 ML VIAL ONE (20:25)
[2021-05-27] MEDS ORDERED: niCARdipine 20MG In NaCl 20 MG/200 ML BAG ONE (22:17)
[2021-05-27] MEDS ORDERED: Acetaminophen 325 MG TAB PO PRN (23:00)
[2021-05-27] MEDS ORDERED: Ondansetron PF 4 MG/2 ML Vial IVP PRN (23:00)
[2021-05-27] MEDS ORDERED: TICAGRELOR 90 MG TABLET PO SCH (23:15)
[2021-05-27 23:55] LABS: HBSAg Index 0.34 S/CO (0-0.99); Hep B Surf Ag Non-Reactive S/CO (NonReactive)
[2021-05-28 01:06] LABS: Troponin I 0.203 ng/mL (< 0.028)
[2021-05-28 02:00] LABS: SARS-CoV-2 NAA Rapid Test Not Detected (NotDetected)
[2021-05-28 02:32] LABS: #Eosinphils 0.3 thou/uL (0.0-0.7); #Lymphocytes 0.8 thou/uL (1.20-3.40); #Monocytes 0.6 thou/uL (0.11-0.59); #Neutrophils 4.3 thou/uL (1.40-6.50); %Basophils 0.6 % (0.0-1.0); %Eosinophils 4.2 % (0.0-10.0); %Lymphocytes 12.8 % (21.0-51.0); %Monocytes 9.4 % (0.0-10.0); %Neutrophils 72.9 % (42.0-75.0); Hemoglobin 10.7 g/dL (14.0-18.0); Mean Corpuscular HGB CONC 33.8 g/dL (32.0-36.0); Mean Corpuscular Hemoglobin 30.5 pg (27.0-31.0); Mean Corpuscular Volume 90.3 fL (78.0-98.0); Mean Platelet Volume 8.3 fL (7.4-10.4); Platelet Count 242 thou/uL (130-400); RBC Distribution Width 15.1 % (11.5-14.5); Red Blood Cell (RBC) Count 3.52 mill/uL (4.70-6.10); White Blood Cell (WBC) Count 5.9 thou/uL (4.8-10.8)
[2021-05-28 02:42] LABS: Troponin I 0.201 ng/mL (< 0.028)
[2021-05-28 05:19] LABS: Anion Gap 20 mmol/L (10-20); BUN (Urea Nitrogen) 22 mg/dL (8.4-25.7); Calc. Creatinine Clearance 0 mL/min (70-130); Carbon Dioxide 29 mmol/L (22-29); Chloride 98 mmol/L (98-107); Glucose 83 mg/dL (70-105); Potassium 4.2 mmol/L (3.5-5.1); Sodium 143 mmol/L (136-145)
[2021-05-28] MEDS ORDERED: niCARdipine 20MG In NaCl 20 MG/200 ML BAG ONE (06:20)
[2021-05-28] MEDS ORDERED: TICAGRELOR 90 MG TABLET PO SCH (09:00)
[2021-05-28] MEDS ORDERED: Aspirin 81 mg Enteric Coated Tablet PO SCH (09:00)
[2021-05-28] MEDS ORDERED: Carvedilol 25 MG TAB PO SCH (09:00)
[2021-05-28] MEDS ORDERED: Heparin 5,000 UNITS/ML VIAL SC SCH (09:00)
[2021-05-28] MEDS ORDERED: Famotidine 20 MG TAB PO SCH (09:00)
[2021-05-28] MEDS ORDERED: Heparin 10,000 UNITS/ 10 ML VIAL ONE (09:05)
[2021-05-28] MEDS ORDERED: Famotidine 20 MG TAB ONE (09:05)
[2021-05-28] MEDS ORDERED: Aspirin Chewable 81 MG TAB ONE (09:05)
[2021-05-28 10:21] VITALS: BMI 22.8
[2021-05-28 12:45] VITALS: BP 155/90; TEMP 98.2
[2021-05-28] MEDS ORDERED: Atorvastatin Calcium 20 MG TAB PO SCH (21:00)
[2021-05-31] MEDS ORDERED: FLU VACC QS2021-22(6MOS UP)/PF 60 MCG/0.5 ML SYRINGE IM ONE (09:00)
== END 2021-05-28 12:54 | disposition left against medical advice (07) | DRG 640 ==
LOC: ERS 18:17 → EEVIPCON 21:06 → ERHOLD 21:06
PROVIDERS: ADMIT Internal Medicine; ATTEND Family Medicine
DX: E87.5 Hyperkalemia (principal); N18.6 End stage renal disease; I42.9 Cardiomyopathy, unspecified; I13.2 Hypertensive heart and chronic kidney disease with heart failure and with stage 5 chronic kidney disease, or end stage renal disease; I50.32 Chronic diastolic (congestive) heart failure; I16.1 Hypertensive emergency; I25.10 Atherosclerotic heart disease of native coronary artery without angina pectoris; D63.1 Anemia in chronic kidney disease; E78.5 Hyperlipidemia, unspecified; Z20.822 Contact with and (suspected) exposure to COVID-19; I16.0 Hypertensive urgency; R07.9 Chest pain, unspecified; R79.89 Other specified abnormal findings of blood chemistry; G89.29 Other chronic pain; M54.50 Low back pain, unspecified; Z79.891 Long term (current) use of opiate analgesic; Z95.5 Presence of coronary angioplasty implant and graft; Z91.15 Patient's noncompliance with renal dialysis; Z79.82 Long term (current) use of aspirin; Z79.899 Other long term (current) drug therapy; Z99.2 Dependence on renal dialysis; I25.2 Old myocardial infarction; Z89.022 Acquired absence of left finger(s)
CPT/HCPCS: 36556; 70450; 71045; 80048; 80053; 82553; 84484; 85025; 87340; 90935; 93005; 96365; 96374; 96375; G0257; J0610; J1644; J1815; U0002